=== PATIENT | female | born 1930 | race Caucasian/White ===

== ENCOUNTER 2016-09-18 09:57 | Emergency (ER) | payer MEDICARE ==
[~2016-09-18] VITALS: Ht 180.3 cm; Wt 59.1 kg
[~2016-09-18 09:57] MED LIST: ASPI81TA3 PO; DIPH25CA6 PO; DORZ10DR20 BOTH_EYES; HYDR28OI2 TP; OMEG-38 PO; SERT50TA9 PO; SIMV80TA4 PO; SPIR50TA2 PO; TAFL1DRO OP; TRIA1CAP PO
[2016-09-18 10:00] VITALS: BP 143/78; PULSE 89; RESP 20; O2SAT 97
--- NOTE | 2016-09-18 10:01 | ED.REPORT ---
HPI-Trauma Multiple Date of Service Sep 18, 2016 ED Provider: Dashawn Araujo MD The patient is an 86 year old female with history of hypertension and colon cancer on chemotherapy, who presents to the emergency department by EMS after she had a ground level fall prior to arrival. The patient was getting out of her shower when she slipped and fell. She hit both sides of the back of her head and her right elbow. She was able to get to the phone and call the nurse at the assisted living facility that she resides at. She did not lose consciousness. She does complain of a headache. She denies dizziness, lightheadedness, focal weakness, numbness, chest pain, shortness of breath or vomiting. She is not on any blood thinners. Nursing Notes Stated Complaint: GLF Nursing Notes Reviewed: Yes Allergies: Coded Allergies: Penicillins (Verified Allergy, Unknown, 12/03/15) adhesive tape (Verified Allergy, Unknown, 12/03/15) carboplatin (Verified Allergy, Unknown, 12/03/15) cephalexin (Verified Allergy, Unknown, 12/03/15) ciprofloxacin (Verified Allergy, Unknown, 12/03/15) diclofenac (Verified Allergy, Unknown, 12/03/15) gabapentin (Verified Allergy, Unknown, 12/03/15) Uncoded Allergies: FRAGANCE (Allergy, Unknown, 11/21/14) VICKS VAPORUB INGREDIENTS (Allergy, Unknown, 11/21/14) Scheduled Aspirin Chew (Aspirin Chew) 81 Mg Tablet 162 MG PO DAILY Dorzolamide HCl/Timolol Maleat (Dorzolamide-Timolol Eye Drops) 10 Ml Drops 1 GTT OP BID [place]-3/Dha/Epa/Fish Oil (Fish Oil 1,000 mg Softgel) 1 Each Capsule 1 EACH PO DAILY Sertraline HCl (Sertraline) 50 Mg Tablet 50 MG PO DAILY Simvastatin (Simvastatin) 80 Mg Tablet 40 MG PO HS Spironolactone (Spironolactone) 50 Mg Tablet 50 MG PO DAILY Tafluprost/Pf (Zioptan 0.0015% Eye Drops) 1 Each Droperette 1 GTT OP HS Triamterene/HCTZ 37.5-25 mg (Dyazide 37.5-25 mg) 1 Each Capsule 1 EACH PO DAILY Scheduled PRN Hydrocortisone Acetate (Hydrocortisone) 28 Gm Oint...g. TP prn PRN PRN For Itching diphenhydrAMINE HCl (Benadryl) 25 Mg Capsule 25 MG PO Q4 PRN PRN For Itching General Time Seen by Provider: 10:18 Chief Complaint Extremity pain/injury, Head pain/injury, Other (fall) Hx Obtained From: Patient, EMS Arrived By: Ambulance Onset Occurred: Just prior to arrival Symptom Duration: Since onset Progression Since Onset: Constant Caused by: Fall while (getting out of shower) Context: Occurred at: Home Location: : Scalp Quality: Painful Severity: Current: Mild Severity: Maximum: Moderate Recent Healthcare: No recent doctor visit, No recent hospitalization Similar Sx Previous: No Past Medical History Past Medical History 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, 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 Reports: Cancer, Hypertension Past Surgical History Knee surgery Reports: Cataract surgery, Hysterectomy Reports: Back/neck surgery Family History Noncontributory Smoking History Never Smoker Social History Drug Use: Denies drug use Other Social History: Lives in [facility], Local resident 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 Physical Exam Initial Vital Signs Vital Signs (First) Date Time Temp Pulse Resp B/P Pulse Ox O2 Delivery O2 Flow Rate FiO2 09/18/16 10:00 36.7 89 20 143/78 97 Room Air Initial VS: Reviewed ENT: Mucous membranes moist, Conjunctiva normal, No scleral icterus Extremities: Vascular intact, Neuro intact Skin: Warm, Dry, No cyanosis Psychiatric: Mood/affect normal, Behavior normal, Normal thought content General/Constitutional: Awake, Alert, Cooperative Head / Eyes: Normocephalic, PERRL, EOMI She has an occipital hematoma and there appears to be a laceration with some dried blood about the right side of her scalp. Neck: Atraumatic, Supple, Full range of motion, No swelling, Non-tender, No midline vertebral tend, No masses, No crepitus, No JVD, No tracheal deviation Respiratory / Chest: Atraumatic, Breath sounds NL, Breath sounds = bilat, No respiratory distress, No rales, No rhonchi, No wheezing, No stridor, No chest tenderness, No chest wall deformity, No crepitus Cardiovascular: Heart rate NL, Regular rhythm, Heart sounds NL, No gallop, No murmurs, No rubs, Cap refill not delayed, Peripheral circulation NL Abdomen: Atraumatic, Soft, Non-tender, No guarding, No rebound, BS normoactive , No distention Back: Atraumatic, Inspection NL, Non-tender, No midline vertebral tend Neurologic: Oriented X3, Speech NL, No motor deficits, No sensory deficits, CN II - XII intact, Cerebellar NL, Memory NL Upper Extremity / MS: Neurologic intact, Vascular intact LUE is atraumatic with good radial pulses. RUE with a superficial abrasion overlying right elbow and a well healed scar over right shoulder. Full active and passive range of motion of her RUE. There is a tiny superficial abrasion over the DIP joint of her right second finger. Lower Extremity / Pelvis / MS: Atraumatic, Inspection NL, Full range of motion , No swelling, Non-tender, No deformity, Neurologic intact, Vascular intact, Pelvis stable, Pelvis non-tender RLE and LLE are both atraumatic with full active and passive range of motion. Good perfusion to feet. Interpretation & Diagnostics Lab Results Interpretation Result Diagram: 09/18/16 1242 09/18/16 1242 Test 09/18/16 12:42 White Blood Count 9.8th/mm3 (3.8-10.1) Red Blood Count 3.51mil/mm3 (3.90-5.20) Hemoglobin 11.0g/dL (12.0-15.6) Hematocrit 34.9% (35.0-46.0) Mean Corpuscular Volume 99.4fL (81-100) Mean Corpuscular Hemoglobin 31.3pg (27.0-35.0) Mean Corpuscular Hemoglobin Concent 31.5% (32.0-37.0) Red Cell Distribution Width 15.2% (12.3-15.4) Platelet Count 188bil/L (150-400) Neutrophils (%) (Auto) 82.6% (40-74) Lymphocytes (%) (Auto) 5.9% (14-46) Monocytes (%) (Auto) 9.8% (4-12) Eosinophils (%) (Auto) 1.2% (0-5) Basophils (%) (Auto) 0.2% (0-3) Prothrombin Time 11.7sec (8.1-12.5) Prothromb Time International Ratio 1.09ratio Sodium Level 136mEq/L (134-144) Potassium Level 3.7mEq/L (3.5-5.2) Chloride Level 97mEq/L (97-108) Carbon Dioxide Level 28mmol/L (18-29) Blood Urea Nitrogen 18mg/dL (8-27) Creatinine 0.62mg/dL (0.57-1.00) Estimat Glomerular Filtration Rate 131mL/min (>59) Glucose Level 96mg/dL (60-99) Calcium Level 9.3mg/dL (8.5-10.1) Total Bilirubin 0.9mg/dL (0.0-1.2) Aspartate Amino Transf (AST/SGOT) 25U/L (0-50) Alanine Aminotransferase (ALT/SGPT) 17U/L (0-32) Alkaline Phosphatase 70U/L (25-165) Total Protein 6.5g/dL (6.4-8.4) Albumin 3.7g/dL (3.4-5.0) X-Ray Interpretation X-Ray Ordered: Elbow right Interpretation / Wet Read by: Wet read ED physician Interpretation: Normal exam, No fracture/dislocation CT Head Interpretation IMPRESSION: 1. There is acute subdural hematoma along the right side of the falx and tentorium measuring up to 7 mm. There is trace right frontotemporoparietal subdural hematoma. No significant mass effect or midline shift. 2. Suspect small subarachnoid bleed in the right temporal lobe. 3. Cerebral volume loss and chronic microvascular ischemic changes. 4. Left parieto-occipital scalp laceration and hematoma. Dictated by: Mendel Batista M.D. on 09/18/2016 Study: Head CT no contrast Interpretation / Wet Read by: Interpret - Radiologist, Discussed w radiologist CT C-Spine Interpretation IMPRESSION: 1. No fractures in cervical spine. 2. Degenerative disease, uncovertebral hypertrophy and facet arthropathy in cervical spine. 3. Postsurgical changes related to posterior decompression at C4-C6. 4. Subpleural nodular densities in the right apex are most likely inflammatory in etiology. Dictated by: Mendel Batista M.D. on 09/18/2016 at 12:53. Study type: CT no contrast Interpretation / Wet Read by: Interpret - Radiologist, Discussed w radiologist Procedures Laceration Management Time: 12:43 Procedure Performed by: ED physician Consent / Setup / Site Prep: Consent from patient, Time-out performed, Hand hygiene observed Location of Wound: right occipital region, arcuate shaped, no involvement of the galea Wound Length: 8 cm Digital Block: No Wound Preparation: Normal saline Debridement: None Irrigation: Copious Foreign Body Explore / Removal: Explored for foreign body Undermining / Margins: Flaps aligned Repair Skin: Juarez # Sutures - Skin: 6 Closure Layers: 1 Post-Procedure / Complications: No complications, Condition improved, Tolerated procedure well, Patient stable Re-Eval/Medical Decision Med Decision/Clinical Course The patient is an 86 year old female with history of hypertension and colon cancer on chemotherapy, who presents to the emergency department by EMS after she had a ground level fall prior to arrival. She struck her occipital scalp and is complaining of bleeding from her scalp as well as right elbow pain. She is hemodynamically stable and afebrile. She is not on any blood thinners. Her GCS is 15. CT scan of the head was obtained as above and demonstrated acute SDH about the R falx and tentorium measuring about 7 mm. Thee was additional small R subarachnoid bleed present. Cervical spine CT demonstrated no acute fractures. Plain films of the right elbow demonstrated no acute fractures. Pt remained hemodynamically stable with no decline in mental status. She was discussed with [facility] Dr. James who accepted the patient for transfer. EMTALA paperwork was completed the patient was transferred to [facility] by helicopter in stable condition. Scalp laceration was copiously irrigated and closed as documented above using juarez. There was no foreign body present. Patient was reportedly up-to-date on tetanus status. Source of Hx: Old records, EMS Re-Evaluation/Progress #1: Time of Eval: 12:17 Re-Evaluation/Progress Note: Rechecked the patient. Discussed results, diagnosis, and plan for transfer to [facility]. She understands and agrees with plan. All questions were addressed. Re-Evaluation/Progress #2: Time of Eval: 13:26 Re-Evaluation/Progress Note: [facility] is here for the patient. Consultation #1: Call Returned at: 12:15 Note: Paged [facility] transfer center Consultation #2: Call Returned at: 12:35 Note: Spoke with Dr. James who accepts the patient for transfer. Counseled Regarding: Diagnosis, Lab results, Need for transfer Discharge & Departure Impression: Primary Impression: Fall Encounter type: initial encounter Qualified Code: W19.XXXA - Unspecified fall, initial encounter Additional Impressions: Subdural hematoma Scalp laceration Encounter type: initial encounter Qualified Code: S01.01XA - Laceration without foreign body of scalp, initial encounter Subarachnoid hemorrhage History of antineoplastic chemotherapy Disposition: Transfer, Acute Care Facility Receiving Hospital: [facility] Transfer Accepted: Yes Transfer Accepted at: 12:35 Transfer Reason: Higher level of care, Trauma Spoke with: Attending physician (Dr. James) Patient Status: Stable, Stable for transfer Patient Informed: Yes Discharge Condition All VS Reviewed: Yes Condition: Stable Referrals: WILLIE ASHTON MD (PCP) Crit Care Except Billable Proc Time Spent: 135-164 minutes Services Performed: Patient management by me, Time spent at bedside, Reviewing test results, Reviewing imaging, Discussing patient care, Documentation in record Critical Care Notes: Arranging transport, discussing findings with radiology, discussing findings with accepting physician at [facility], discussions with transfer center, exclusive of separately billable procedures. Scribe Attestation Portions of this note were transcribed by Mary Alice Horvath. I, Dr. Araujo personally performed the history, physical exam and medical decision-making; I reviewed and confirmed the accuracy of the information in the transcribed note. Signed by: Megan Callaway, 09/18/2016 and 1400. copies to: WILLIE ASHTON MD, Beck O MD Sep 18, 2016 10:01 Mary Alice Horvath Sep 18, 2016 10:06
[2016-09-18] MEDS ORDERED: HYDROcodone-APAP 7.5-325 mg Tablet PO ONE (10:35)
[2016-09-18 12:10] VITALS: BP 121/67; PULSE 78; O2SAT 98
[2016-09-18 12:47] LABS: BASOPHILS % (AUTO) 0.2 % (0-3); EOSINOPHILS % (AUTO) 1.2 % (0-5); MONOCYTES % (AUTO) 9.8 % (4-12); Mean Corpuscular Hemoglobin 31.3 pg (27.0-35.0); Mean Corpuscular Volume 99.4 fL (81-100); NEUTROPHILS % (AUTO) 82.6 % (40-74); Platelet Count 188 bil/L (150-400)
[2016-09-18 12:58] VITALS: BP 158/76; PULSE 107; RESP 19; O2SAT 98
[2016-09-18 13:03] LABS: INR 1.09 ratio
--- NOTE | 2016-09-18 15:14 | DRSVH ---
PROCEDURE: CT BRAIN WITHOUT CONTRAST ([id number]) INDICATIONS: trauma TECHNIQUE: Noncontrast 4.5 mm thick angled axial sections acquired from the foramen magnum to the vertex, with c oronal reformats. COMPARISON: [facility], CT, CT CERVICAL SPINE WO [facility], 09/18/2016, 11:56. [facility], CT, CT BRAIN WO CON, 12/03/2015, 7:52. FINDINGS: Image quality: Excellent. CSF spaces: There is acute hematoma along the falx and tentorium on the right measuring up to 7 mm t hickness. There is also trace right frontotemporoparietal subdural hematoma. There is minimal mass e ffect with no midline shift. The ventricles are symmetric in size and shape. Brain: Hyperdensity along the cerebral sulci in the right temporal lobe is suspicious for small suba rachnoid bleed. Basal cisterns are patent. No intracranial bleeds or masses. There is cerebral volu me loss for age, with resultant ventricular and sulcal prominence. There are periventricular and sumit p white matter chronic small vessel ischemic changes. There is intracranial internal carotid artery atherosclerosis. Skull and face: Calvarium and visualized facial bones appear intact, without suspicious lesions. Th ere is a left parieto-occipital scalp laceration and subscalp hematoma. Sinuses: Visualized sinuses and mastoids are clear. IMPRESSION: 1. There is acute subdural hematoma along the right side of the falx and tentorium measuring up to 7 mm. There is trace right frontotemporoparietal subdural hematoma. No significant mass effect or midli ne shift. 2. Suspect small subarachnoid bleed in the right temporal lobe. 3. Cerebral volume loss and chronic microvascular ischemic changes. 4. Left parieto-occipital scalp laceration and hematoma. The result was discussed with Dr. Araujo on 09/18/2016 at 1215 hours. Dictated by: Mendel Batista M.D. on 09/18/2016 at 12:13 Approved by: Mendel Batista M.D. on 09/18/2016 at 12:29
--- NOTE | 2016-09-18 15:15 | DRSVH ---
PROCEDURE: CT CERVICAL SPINE WITHOUT CONTRAST ([id number]) INDICATIONS: 86-year-old woman fell. TECHNIQUE: Noncontrast 3 mm thick sections acquired from the skull base to the T4 level. Sagittal and coronal r eformats were then constructed. For radiation dose reduction, the following was used: automated exp osure control, adjustment of mA and/or kV according to patient size. COMPARISON: [facility], CT, CT BRAIN WO CON, 09/18/2016, 11:56. [facility], CT, CT CERVICAL SPINE WO CON, 12/03/2015, 7:52. FINDINGS: Image quality: Excellent. Bones: No fractures or dislocations. Post surgical changes are noted related to posterior decompres surya C4-C6. There is loss of normal cervical lordosis. There is degenerative disc disease in cervical spine, severe at C5-C6 and C6-C7. There is bilateral uncovertebral hypertrophy scattered in cervical spine. There is bilateral facet arthropathy, most pronounced at C3-C4 bilaterally and C6-C7 on the l eft. Soft tissues: Prevertebral soft tissues are normal in thickness. No paravertebral hematomas. No ap ical pneumothoraces. Subpleural nodular densities in the right apex are most likely inflammatory in etiology. IMPRESSION: 1. No fractures in cervical spine. 2. Degenerative disease, uncovertebral hypertrophy and facet arthropathy in cervical spine. 3. Postsurgical changes related to posterior decompression at C4-C6. 4. Subpleural nodular nodular densities in the right apex are most likely inflammatory in etiology. The preliminary result was discussed with Dr. Aung Maria on 09/18/2016 at 1220 hours. Dictated by: Mendel Batista M.D. on 09/18/2016 at 12:53 Approved by: Mendel Batista M.D. on 09/18/2016 at 13:01
--- NOTE | 2016-09-18 15:15 | DRSVH ---
PROCEDURE: X-RAY RIGHT ELBOW, TWO VIEWS ([id number]) INDICATIONS: trauma TECHNIQUE: 3 views of the elbow were acquired. COMPARISON: None. FINDINGS: Bones: No fractures or dislocations. No suspicious bony lesions. Soft tissues: No elbow joint effusion. No suspicious soft tissue calcifications. IMPRESSION: No fracture or dislocation. Dictated by: Mendel Batista M.D. on 09/18/2016 at 13:38 Approved by: Mendel Batista M.D. on 09/18/2016 at 13:39
[2016-10-17] MEDS ORDERED: ATOR20TA PO (09:48)
[2016-10-17] MEDS ORDERED: MAGN400O4 PO (09:48)
[2016-10-17] MEDS ORDERED: OXYC-537 PO (09:48)
[2016-10-17] MEDS ORDERED: LOV40 SUBQ (09:48)
[2016-10-17] MEDS ORDERED: POLY17PO6 PO (09:48)
[2016-10-17] MEDS ORDERED: POLY1DRO BOTH_EYES (09:48)
[2016-10-17] MEDS ORDERED: DOCU-41 PO (09:48)
[2016-10-17] MEDS ORDERED: LATA2.5D6 OP (09:48)
[2016-10-17] MEDS ORDERED: ACET325T51 PO (09:48)
[2016-10-17] MEDS ORDERED: PREG75CA PO (09:48)
== END 2016-09-18 13:42 | disposition short-term general hospital (02) ==
LOC: EDBD 09:57 → SED 09:57
DX: S06.6X0A Traumatic subarachnoid hemorrhage without loss of consciousness, initial encounter (principal); S06.5X0A Traumatic subdural hemorrhage without loss of consciousness, initial encounter; S01.01XA Laceration without foreign body of scalp, initial encounter; W18.2XXA Fall in (into) shower or empty bathtub, initial encounter; Y93.E1 Activity, personal bathing and showering; Y99.8 Other external cause status; Y92.121 Bathroom in nursing home as the place of occurrence of the external cause; I10 Essential (primary) hypertension; Z90.710 Acquired absence of both cervix and uterus; Z85.038 Personal history of other malignant neoplasm of large intestine; Z51.11 Encounter for antineoplastic chemotherapy; Z85.43 Personal history of malignant neoplasm of ovary; Z79.82 Long term (current) use of aspirin; Z88.0 Allergy status to penicillin; Z88.1 Allergy status to other antibiotic agents; Z88.8 Allergy status to other drugs, medicaments and biological substances

== ENCOUNTER 2016-11-15 09:11 | Observation (INO) | payer MEDICARE ==
[~2016-11-15] VITALS: Ht 180.3 cm; Wt 62.6 kg
[2016-11-15 09:11] VITALS: BP 136/73; PULSE 79; RESP 16; O2SAT 95
[~2016-11-15 09:11] MED LIST changes: +ACET325T51 PO; -ASPI81TA3 PO; +ATOR20TA PO; -DIPH25CA6 PO; +DOCU-41 PO; -HYDR28OI2 TP; +LATA2.5D6 OP; +LOV40 SUBQ; +MAGN400O4 PO; -OMEG-38 PO; +OXYC-537 PO; +POLY17PO6 PO; +POLY1DRO BOTH_EYES; +PREG75CA PO; -SIMV80TA4 PO; -TAFL1DRO OP; -TRIA1CAP PO
[2016-11-15] MEDS ORDERED: oxyCODONE-Acetamin 5-325 mg Tablet PO ONE (09:20)
--- NOTE | 2016-11-15 09:31 | ED.REPORT ---
HPI-Trauma Minor / Fall Date of Service Nov 15, 2016 ED Provider: Júnior Prescott MD An 86 year old female with a history of primary peritoneal carcinoma/ovarian cancer, and HTN presents to the ED via EMS complaining of left knee pain after GLF that occurred in the handkerchief sample clerk, [phone] today. She is not sure why she fell, not being sure if she lost balance or if she was not paying attention. Associated symptoms include left leg swelling that is not normal, and back pain. She also has left ankle pain. She denies any abdominal pain. She denies hitting her head or losing consciousness. She denies currently being on any blood thinners. Nursing Notes Stated Complaint: LEFT KNEE PAIN Chief Complaint: Multiple Trauma/Fall Nursing Notes Reviewed: Yes Allergies: Coded Allergies: Penicillins (Verified Allergy, Unknown, 12/03/15) adhesive tape (Verified Allergy, Unknown, 12/03/15) carboplatin (Verified Allergy, Unknown, 12/03/15) cephalexin (Verified Allergy, Unknown, 12/03/15) ciprofloxacin (Verified Allergy, Unknown, 12/03/15) diclofenac (Verified Allergy, Unknown, 12/03/15) gabapentin (Verified Allergy, Unknown, 12/03/15) Uncoded Allergies: FRAGANCE (Allergy, Unknown, 11/21/14) VICKS VAPORUB INGREDIENTS (Allergy, Unknown, 11/21/14) Scheduled Atorvastatin (Lipitor) 20 Mg Tablet 20 MG PO DAILY Dorzolamide HCl/Timolol Maleat (Dorzolamide-Timolol Eye Drops) 10 Ml Drops 1 GTT OP BID Enoxaparin (Lovenox) 40 Mg/0.4 Ml Syringe 40 MG SUBQ HS Latanoprost (Latanoprost) 2.5 Ml Drops 1 GTT OP LEFT EYE HS DAILY Oxycodone HCl (Oxaydo) 5 Mg Tablet.orl 2.5-5 MG PO Q3HRS PRN Polyethylene Glycol 3350 (Miralax) 17 Gm Powd.pack 17 GM PO DAILY PRN Polyvinyl Alcohol/Povidone/Pf (Refresh Classic Eye Drops) 1 Each Droperette 1 EACH OP EACH EYE PRN Pregabalin (Lyrica) 75 Mg Capsule 75 MG PO BID Sertraline HCl (Sertraline) 50 Mg Tablet 50 MG PO DAILY Spironolactone (Spironolactone) 50 Mg Tablet 25 MG PO DAILY Scheduled PRN Acetaminophen (Acetaminophen) 325 Mg Tablet 650 MG PO Q4H PRN PRN For Pain Docusate Sodium (Colace) 100 Mg Capsule 200 MG PO BID PRN PRN For Constipation Magnesium Hydroxide (Milk of Magnesia) 400 Mg/5 Ml Oral.susp 30 ML PO PRN PRN PRN For Constipation General Time Seen by MD: 09:30 Transferred From: halfway Chief Complaint Fall Hx Obtained From: Patient, EMS Arrived By: Ambulance Onset Occurred: 1 - 4 hours ago Symptom Duration: Since onset Location: Knee left Severity: Current: Moderate Severity: Maximum: Moderate Recent Healthcare: Recent doctor visit (oncology appointment on 10/18/2016) Similar Sx Previous: No Past Medical History Past Medical History 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 Reports: Cancer, Hypertension Past Surgical History Knee surgery cervical spine laminectomy Reports: Cataract surgery, Hysterectomy Reports: Back/neck surgery Family History Noncontributory Smoking History Never Smoker Social History Patient lives at [facility]. 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 Musculoskeletal: Reports: Back pain, Extremity pain (left knee, left ankle), Extremity swelling (left leg swelling) Neurologic: Denies: Syncope Complete sys rev & neg: except as marked. GI: Denies: Abdominal pain Physical Exam Initial Vital Signs Vital Signs (First) Date Time Temp Pulse Resp B/P Pulse Ox O2 Delivery O2 Flow Rate FiO2 11/15/16 09:11 36.7 79 16 136/73 95 Room Air Initial VS: Reviewed General/Constitutional: Awake, Alert Neck: Atraumatic, Full range of motion Head / Eyes: Atraumatic, Normocephalic, PERRL, EOMI ENT: Atraumatic, Mucous membranes moist Respiratory / Chest: Atraumatic, Breath sounds NL, Breath sounds = bilat, No respiratory distress, No rales, No rhonchi, No wheezing Cardiovascular: Heart rate NL, Regular rhythm, Heart sounds NL, No gallop, No murmurs, No rubs Lower Ext Edema: Positive: Bilateral 2+ Abdomen: No guarding, No rebound Left Thigh: Positive: Swelling present... (Very swollen left knee. Minimal movement is painful.) Skin: Color NL, Warm, Dry Neurologic: Oriented X3, Speech NL Interpretation & Diagnostics Lab Results Interpretation Result Diagram: 11/15/16 1012 11/15/16 1012 Test 11/15/16 10:12 11/15/16 10:20 White Blood Count 5.2th/mm3 (3.8-10.1) Red Blood Count 3.71mil/mm3 (3.90-5.20) Hemoglobin 10.7g/dL (12.0-15.6) Hematocrit 35.3% (35.0-46.0) Mean Corpuscular Volume 95.1fL (81-100) Mean Corpuscular Hemoglobin 28.8pg (27.0-35.0) Mean Corpuscular Hemoglobin Concent 30.3% (32.0-37.0) Red Cell Distribution Width 15.2% (12.3-15.4) Platelet Count 188bil/L (150-400) Neutrophils (%) (Auto) 73.4% (40-74) Lymphocytes (%) (Auto) 8.3% (14-46) Monocytes (%) (Auto) 16.2% (4-12) Eosinophils (%) (Auto) 1.5% (0-5) Basophils (%) (Auto) 0.4% (0-3) Sodium Level 139mEq/L (134-144) Potassium Level 3.7mEq/L (3.5-5.2) Chloride Level 102mEq/L (97-108) Carbon Dioxide Level 22mmol/L (18-29) Blood Urea Nitrogen 17mg/dL (8-27) Creatinine 0.59mg/dL (0.57-1.00) Estimat Glomerular Filtration Rate 139mL/min (>59) Glucose Level 96mg/dL (60-99) Calcium Level 9.4mg/dL (8.5-10.1) Total Bilirubin 1.4mg/dL (0.0-1.2) Aspartate Amino Transf (AST/SGOT) 13U/L (0-50) Alanine Aminotransferase (ALT/SGPT) 6U/L (0-32) Alkaline Phosphatase 68U/L (25-165) Total Protein 6.4g/dL (6.4-8.4) Albumin 3.5g/dL (3.4-5.0) Hold Ortega Top Tube Received (Received) Urine Color Dark yellow (YELLOW) Urine Appearance Clear (CLEAR,HAZY) Urine pH 5.0 (5.0-8.0) Urine Specific [place] 1.025 (1.003-1.035) Urine Protein Tracemg/dL (NEG,TRACE) Urine Glucose (UA) Negativemg/dL (NEGATIVE) Urine Ketones 15mg/dL (NEGATIVE) Urine Occult Blood Negative (NEGATIVE) Urine Nitrite Negative (NEGATIVE) Urine Bilirubin Negative (NEGATIVE) Urine Urobilinogen Normalmg/dL (NORMAL) Urine Leukocyte Esterase Negative (NEGATIVE) Urine RBC 0-2/hpf (0-2) Urine WBC 0-5/hpf (0-5) Urine Epithelial Cells Occasional/hpf (NONE-MOD) Urine Crystals None seen (NONE SEEN) Urine Bacteria None/hpf (NONE-FEW) Urine Hyaline Casts Occasional/lpf (NONE) Urine Granular Casts Occasional (NONE SEEN) Urine Waxy Casts None seen (NONE SEEN) Urine Red Blood Cell Casts None seen (NONE SEEN) Urine White Blood Cell Casts None seen (NONE SEEN) Urine Mucus Present (None Seen) Urine Trichomonas None seen (NONE SEEN) Urine Yeast None (NONE SEEN) Urinalysis Comment None Urine Culture Reflexed Not indicated Lab Results Interpretation: PROCEDURE: CT KNEE LEFT W/O CONTRAST ([id number]) IMPRESSION: 1. No fracture. No acute osseous lesion. If symptoms and/or clinical suspicion for pathology persists, further assessment with repeat radiographs or advanced imaging (e.g. CT, MRI or bone scan) may be helpful for further assessment. 2. Severe tricompartmental osteoarthritis. 3. 1.8 x 0.7 x 0.7 cm ossified intra-articular loose body. Dictated by: Deepa Michael MD, PhD on 11/15/2016 at 14:05 Approved by: Deepa Michael MD, PhD on 11/15/2016 at 14:10 ECG Interpretation ECG Interpretation: Rate is 69. Sinus rhythm. Time: 10:15 Interpreted by: ED physician X-Ray Interpretation Xray Interpretation: PROCEDURE: X-RAY LEFT ANKLE, MINIMUM THREE VIEWS ([id number]) IMPRESSION: 1. Osteopenia of the left ankle without acute fracture. 2. Extensive subcutaneous edema of the left lower leg. Dictated by: Krish López M.D. on 11/15/2016 at 10:40 Approved by: Krish López M.D. on 11/15/2016 at 10:41 X-Ray Ordered: Ankle left Interpretation / Wet Read by: Interpret - Radiologist Xray Interpretation: PROCEDURE: X-RAY LEFT KNEE, THREE VIEWS ([id number]) IMPRESSION: 1. Severe degenerative changes and osteopenia of the left knee without a displaced fracture evident. 2. Small to moderate knee joint effusion. Dictated by: Krish López M.D. on 11/15/2016 at 10:42 Approved by: Krish López M.D. on 11/15/2016 at 10:43 X-Ray Ordered: Knee left Interpretation / Wet Read by: Interpret - Radiologist Xray Interpretation: PROCEDURE: X-RAY SACRUM AND COCCYX, MINIMUM THREE VIEWS ([id number]) IMPRESSION: 1. No displaced fracture or dislocation. If clinical concern persists, recommend further evaluation with CT. Dictated by: Darren Odonnell M.D. on 11/15/2016 at 11:27 Approved by: Darren Odonnell M.D. on 11/15/2016 at 11:31 Interpretation / Wet Read by: Interpret - Radiologist Re-Eval/Medical Decision Med Decision/Clinical Course Patient is unable to ambulate, will get PT eval to see if she is a good SNF candidate. Source of Hx: Old records, EMS Re-Evaluation/Progress : Time of Eval: 14:17 Patient Status: Condition improved Re-Evaluation/Progress Note: Rechecked patient and explaiend normal test results. Patient is in no pain sitting, but does report numbness in her feet. Explained that patient needs social work help. Counseled Regarding: Diagnosis, Lab results, Need for follow-up, When/why to return to ED Discharge & Departure Shift Change Sign-Out Patient Care Transferred: Yes Discussed Complaint(s): Yes Impression: Primary Impression: Fall Additional Impression: Knee contusion Additional Instructions: Your knee and ankle look fine. You do not have any fractures. Your blood work looks great and there is no evidence of infection. Treat the pain for a few days and see if it gets better. If by this time this week, it still hurts and you cannot put any weight on it, return to the emergency room. Referrals: WILLIE ASHTON MD (PCP) Care Transferred to: Dr. Araujo Care Transferred at: 15:00 Megan Attestation Portions of this note were transcribed by Iban Mcneal. I, Dr. Prescott personally performed the history, physical exam and medical decision-making; I reviewed and confirmed the accuracy of the information in the transcribed note. Signed by: Megan Griggs, 11/15/2016, 1449. copies to: WILLIE ASHTON MD, Kirk H MD Nov 15, 2016 09:31 Iban Mcneal Nov 15, 2016 09:34
[2016-11-15 10:17] LABS: BASOPHILS % (AUTO) 0.4 % (0-3); EOSINOPHILS % (AUTO) 1.5 % (0-5); MONOCYTES % (AUTO) 16.2 % (4-12); Mean Corpuscular Hemoglobin 28.8 pg (27.0-35.0); Mean Corpuscular Volume 95.1 fL (81-100); NEUTROPHILS % (AUTO) 73.4 % (40-74); Platelet Count 188 bil/L (150-400)
[2016-11-15 11:16] LABS: APPEARANCE,URINE CLEAR (CLEAR,HAZY); COLOR,URINE DARK YELLOW (YELLOW)
[2016-11-15 11:17] LABS: OCCULT BLOOD,URINE NEGATIVE (NEGATIVE); UROBILINOGEN,URINE NORMAL (NORMAL)
--- NOTE | 2016-11-15 11:33 | DRSVH ---
PROCEDURE: X-RAY SACRUM AND COCCYX, MINIMUM THREE VIEWS ([id number]) INDICATIONS: trauma TECHNIQUE: 3 views of the sacrum and coccyx acquired. COMPARISON: None. FINDINGS: Bones: No displaced fractures or dislocations. There is degenerative disc disease and facet arthrop athy in the visualized lower lumbar spine. No suspicious bony lesions. Soft tissues: Visualized bowel gas pattern is normal. IMPRESSION: 1. No displaced fracture or dislocation. If clinical concern persists, recommend further evaluation with CT. Dictated by: Darren Odonnell M.D. on 11/15/2016 at 11:27 Approved by: Darren Odonnell M.D. on 11/15/2016 at 11:31
--- NOTE | 2016-11-15 11:43 | DRSVH ---
PROCEDURE: X-RAY LEFT ANKLE, MINIMUM THREE VIEWS ([id number]) INDICATIONS: trauma TECHNIQUE: 3 views of the ankle were acquired. COMPARISON: None. FINDINGS: Bones: The bone mineralization is diffusely decreased. There are no displaced fractures or dislocati ons evident. No suspicious osseous lesions are appreciated. The ankle mortise is well-maintained. There may be an old injury at the tip of the lateral malleolus given a small rounded ossific/calcific density present at that location. Soft tissues: No significant ankle effusion is present. Diffuse subcutaneous edema is evident overly ing the left lower leg, which is more pronounced anteriorly with corresponding skin thickening. Scat tered vascular calcifications are noted. IMPRESSION: 1. Osteopenia of the left ankle without acute fracture. 2. Extensive subcutaneous edema of the left lower leg. Dictated by: Krish López M.D. on 11/15/2016 at 10:40 Approved by: Krish López M.D. on 11/15/2016 at 10:41
--- NOTE | 2016-11-15 11:45 | DRSVH ---
PROCEDURE: X-RAY LEFT KNEE, THREE VIEWS ([id number]) INDICATIONS: trauma TECHNIQUE: 4 views of the knee were acquired. COMPARISON: None. FINDINGS: Bones: The bone mineralization is diffusely decreased. Additionally, there are severe tricompartment al degenerative changes of the left knee with prominent joint space narrowing, subchondral sclerosis, prominent marginal osteophytes, and degenerative cystic changes. These findings could potentially o bscure very subtle fracture. However, no displaced fractures are present. There is no dislocation. No suspicious osseous lesions are evident. Soft tissues: There is a small to moderate knee joint effusion. Moderate edema about the knee is pre sent which may be slightly more prominent laterally. Subcutaneous edema of the lower leg is noted. IMPRESSION: 1. Severe degenerative changes and osteopenia of the left knee without a displaced fracture evident. 2. Small to moderate knee joint effusion. Dictated by: Krish López M.D. on 11/15/2016 at 10:42 Approved by: Krish López M.D. on 11/15/2016 at 10:43
[2016-11-15 12:07] VITALS: BP 136/73; PULSE 64; RESP 15; O2SAT 98
--- NOTE | 2016-11-15 14:11 | DRSVH ---
PROCEDURE: CT KNEE LEFT W/O CONTRAST ([id number]) INDICATIONS: trauma TECHNIQUE: Noncontrast 1-1.5 mm axial sections acquired from the mid-patella to the proximal tibia, with coronal and sagittal reformats. COMPARISON: [facility], CR, XR KNEE 3VW LT, 11/15/2016, 10:58. FINDINGS: Image quality: Excellent. Bones: No fracture or dislocation. Severe tricompartmental osteoarthritic degenerative changes are no mikal including joint space narrowing, subchondral sclerosis, subchondral cyst formation and large joi inal osteophytes. Soft tissues: Large knee joint effusion is noted. There is a 1.8 x 0.7 x 0.7 cm ossified loose body i n the posterior lateral joint space. Mild juxta-articular soft tissue swelling is noted. IMPRESSION: 1. No fracture. No acute osseous lesion. If symptoms and/or clinical suspicion for pathology persists , further assessment with repeat radiographs or advanced imaging (e.g. CT, MRI or bone scan) may be h elpful for further assessment. 2. Severe tricompartmental osteoarthritis. 3. 1.8 x 0.7 x 0.7 cm ossified intra-articular loose body. Dictated by: Deepa Michael MD, PhD on 11/15/2016 at 14:05 Approved by: Deepa Michael MD, PhD on 11/15/2016 at 14:10
--- NOTE | 2016-11-15 15:11 | NUR ---
Spoke with Feliciano at [facility] and he had patient in his facility from 09/29 - 11/01, patient originally came to [facility] from [facility]. Feliciano can accept patient back but will need to be first thing on 11/16/16 due to amount of admits today. Updated ED STRAND GALVANIZER and STRAND GALVANIZER Public Relations Player.
[2016-11-15] MEDS ORDERED: Alum-Mag Hydrox-Simeth 30 mL Suspension PO PRN ×2 (15:40→16:10)
[2016-11-15] MEDS ORDERED: Ondansetron 2 mg/mL 2 mL Inj IVPUSH PRN ×2 (15:40→16:10)
--- NOTE | 2016-11-15 15:51 | NUR ---
Evaluation completed. Please go to "Notes" then click on "Assessments and Notes" (bottom left corner of screen). Then select appropriate discipline tab on top of screen.
[2016-11-15] MEDS ORDERED: RIVA20TA PO (16:00)
[2016-11-15] MEDS ORDERED: SPIR25TA3 PO (16:00)
[2016-11-15 16:09] VITALS: BP 111/52; PULSE 66; O2SAT 98
[2016-11-15] MEDS ORDERED: Polyethylene Glycol (PEG) 17 Gm Powder PO PRN (16:10)
[2016-11-15] MEDS ORDERED: Magnesium Hydroxide 355 mL Oral Suspension PO PRN (17:55)
--- NOTE | 2016-11-15 17:55 | PCM.HPMED ---
Subjective Date of Service Nov 15, 2016 Primary Provider: Admitting Physician: Kaci Montgomery DO Primary Care Physician: Angela Gregorio MD Attending Physician: Kaci Montgomery DO Allergies Coded Allergies: Penicillins (Verified Allergy, Unknown, 11/15/16) adhesive tape (Verified Allergy, Unknown, 11/15/16) carboplatin (Verified Allergy, Unknown, 11/15/16) cephalexin (Verified Allergy, Unknown, 11/15/16) ciprofloxacin (Verified Allergy, Unknown, 11/15/16) diclofenac (Verified Allergy, Unknown, 11/15/16) gabapentin (Verified Allergy, Unknown, 11/15/16) Uncoded Allergies: FRAGANCE (Allergy, Unknown, 11/21/14) VICKS VAPORUB INGREDIENTS (Allergy, Unknown, 11/21/14) PMH Social History Hx Alcohol Use: No Hx Substance Use: No Smoking Status: Never Smoker Exam Vital Signs Vital Sign - Last Date Time Temp Pulse Resp B/P Pulse Ox O2 Delivery O2 Flow Rate FiO2 11/15/16 16:09 36.3 66 111/52 98 Room Air 11/15/16 12:07 15 Lab and Diagnostics Result Diagram: 11/15/16 1012 11/15/16 1012 Assessment & Plan HPI: Patient is an 86-year-old female who presented to the emergency room status post fall. The patient has been having recurrent falls and is currently no longer stable to continue living at her still living facility. The assisted living [facility] stated that they would take the patient back on the inpatient unit however the patient could not come back today. They are scheduling the patient to return to [facility] [place] tomorrow. The patient currently has no fractures and after interview with the patient it does seem that the patient has some dementia which is not noted in her history. Patient was a very difficult historian and was only able to answer questions pertaining to herself. Most of the patient's information came from chart review and the emergency physician who is familiar with this patient. Home medications: Atorvastatin 20 mg daily Dorzolamide/timolol 10 mill drops 1 drop each eye twice a day Plan to process 2.5 mL drops 1 drop in the left eye daily at bedtime Oxycodone 5 mg 2.5-5 mg by mouth every 3 hours when necessary MiraLAX daily when necessary Lyrica 75 mg by mouth twice a day Sertraline 50 mg by mouth daily Spironolactone 25 mg daily Xeralto 20 mg daily PMHx: Peritoneal carcinoma/ovarian cancer with high grade serous histology BRCA negative Hypertension Hyperlipidemia SHx: Knee surgery cervical spine laminectomy Reports: Cataract surgery, Hysterectomy Reports: Back/neck surgery FHx: Unable to obtain at this time secondary to patient's waxing and waning dementia and there is no family present SocHx: Tobacco history: Patient denies Alcohol use: Occasional Drug use: Patient denies ROS: A complete review of systems was performed or attempted to be performed. Please see HPI for pertinent positives, all other systems are negatives. Physical Exam: GEN: Patient was awake, alert, not responding appropriately to questions most likely secondary to dementia, patient is able to answer questions appropriately only if it is in that specific time she has difficulty answering questions in the past such as, how has she been, or if she has ever experienced symptoms such as irregular heartbeat etc. HEENT: Pupils equal round and reactive to light, extraocular eye muscles intact , Neck soft supple, trachea midline, nomocephalic/atraumatic CV: +S1/S2, irregular, no murmurs auscultated Respiratory: CTAB, no wheezes, rales, rhonchi GI: +bowel sounds x4, soft, compressible, nontender to palpation EXT: no clubbing, cyanosis, +1 pitting edema bilaterally Neuro: Cranial nerves II-XII grossly intact Psych: mood and affect were appropriate Assessment and Plan 86-year-old female presents status post ground level fall Ground level fall -Consult PT and OT -Negative for fracture -Placement needed Cataracts -Continue home medications Chronic back and neck pain -Continue home pain meds Hypertension -Continue home meds Hyperlipidemia -Continue home meds Questionable history of A. fib -Continue Xeralto -Patient is currently taking Xeralto and has an irregular heartbeat could possibly be secondary to chronic history of A. fib or could be secondary to a history of DVT. When looking throughout the patient's history during the chart review there was no signs of DVT and ultrasound seemed to pull this out however I could not find anything as to why the patient was taking Xeralto. At this time because the patient does have an irregular heartbeat and may be secondary to a history of A. fib which seems to be chronic and stable. DVT prophylaxis -SCDs Disposition: Patient currently has a history of multiple falls and is no longer safe to stay in assisted living. The patient does seem to be suffering from some signs of dementia which could be a meeting to the patient's falls. Patient has been accepted at [facility] however they are unable to accept this patient today but will be able to accept the patient tomorrow. Patient will most likely stay less than 2 midnights. Code Status: Unknown patient has dementia and no family was present Time spent greater than 45 minutes Kaci Montgomery DO Nov 15, 2016 17:28
--- NOTE | 2016-11-15 18:22 | NUR ---
Transfer from ER Report received from ER nurse. Denies pain or discomfort. [place] and bed alarm on. patient sleeping comfortably.
[2016-11-15] MEDS ORDERED: Artificial Tears 15 mL Ophthalmic Solution BOTH_EYES PRN (18:25)
[2016-11-15 18:44] VITALS: BP 112/79; PULSE 75; RESP 16; O2SAT 94
--- NOTE | 2016-11-15 19:57 | NUR ---
Case Management: Attempted to provide SORENSEN but patient sleeping soundly, will have to try again later. Jeanne Dove RN
[2016-11-15] MEDS: Timolol-Dorzolamide 10 mL Ophthalmic Solution BOTH_EYES SCH (21:12)
[2016-11-15 23:02] VITALS: BP 108/73; PULSE 71; RESP 17; O2SAT 95
[2016-11-16 04:13] VITALS: BP 115/62; PULSE 71; RESP 16; O2SAT 98
--- NOTE | 2016-11-16 05:15 | NUR ---
Pain Pt has pain upon weight bearing but usually only indication is a grimace. One time she did cry out in pain and needed extra help to get back to bedside despite being very close to it. Pt rated pain at 7/10 with weight and then it decreased to a 3/10 after a couple of minutes. Pain medication given upon pt request.
[2016-11-16] MEDS: Timolol-Dorzolamide 10 mL Ophthalmic Solution BOTH_EYES SCH (07:52)
[2016-11-16 08:03] VITALS: BP 130/73; PULSE 87; RESP 18; O2SAT 99
--- NOTE | 2016-11-16 08:29 | PCM.DIMED ---
Discharge Instructions Date of Service Nov 16, 2016 Dates of Hospitalization Nov 15, 2016 at 16:23 Discharge Diagnosis Discharge Diagnosis Ground-level fall Cataracts Chronic back pain Hypertension Hyperlipidemia Dementia Diet No restrictions Activity No restrictions (Gradually return to dialy activities) Call your provider Shortness of breath, Chest pain, Excessive diarrhea, Weakness (unilateral) Patient Instructions Follow-up with PCP in: 1 week (Please follow up with the PCP at [facility] or your own PCP) Kaci Montgomery DO Nov 16, 2016 08:29
[2016-11-16] MEDS ORDERED: Polyethylene Glycol (PEG) 17 Gm Powder PO SCH (08:30)
--- NOTE | 2016-11-16 08:52 | NUR ---
Spoke with Monica dental office coordinator at [facility] and they will transport patient at 11AM. Faxed orders and placed copy in chart. Updated MANUFACTURING EXECUTIVE and asked them to update RN
--- NOTE | 2016-11-16 09:40 | NUR ---
Social Work Note - Initial Assessment/Discharge: D/A: See Initial Assessment. The Pt is an 86 y/o female that was admitted under observation status for left knee pain, instability, meet ADLs. Readmission Risk Score 4. The Pt's PCP is MD Angela Gregorio and her primary insurance is Medicare with an AARP supplement. EMR reviewed. SW met with the Pt at bedside to explain role and discuss discharge planning. SW telephone number written on white board. The Pt lives at the [facility] (Assisted Living side). No Advanced Directive on file, paperwork given to Pt. She receives assistance with meals, medication management, transportation, cleaning, and some personal care. She uses a FWW and does not drive. The Pt [facility] a [facility] and a SNF history at [facility] and [facility]. Some of this initial information was provided by the Pt's daughter Maria Isabel Thomas [phone] due to the Pt's dementia. The Pt was seen in the ED on 11/15/18, see WIRE STRAIGHTENING MACHINE OPERATOR note. PT eval completed, recommending SNF. Pt agreeable to return to [facility] where she was last seen in early October. [facility] is willing to accept the Pt back, transportation set up for 11am. SW t/c to the Pt's daughter for update and clarification of initial assessment information. Daughter is also agreeable for her mother to return to [facility]. The Pt's daughter expressed some concern with future living arrangements for her mother, is currently in the exploration process of future predatory animal exterminator planning if needed. The Pt and daughter deny any other needs at this time, SW to follow if needs arise. P: The Pt to discharge back to [facility], transportation set up for 11am. The Pt and daughter deny any other needs at this time, SW to follow if needs arise. MIS Grajeda Contact Clerk Addendum: 11/16/16 at 0954 by GLENDA MARTINEZ SS Amended: Links added. Addendum: 11/16/16 at 1045 by GLENDA MARTINEZ SS PASRR completed and signed by MD left in transfer packet. Addendum: 11/16/16 at 1442 by GLENDA MARTINEZ SS SW received return call from nursing at [facility], nursing informed that the Pt has been discharge to [facility] earlier today. Nursing informed that the Pt was seen by PT in the ED, recommended SNF services. No other concerns noted.
--- NOTE | 2016-11-16 09:48 | NUR ---
Evaluation completed. Please go to "Notes" then click on "Assessments and Notes" (bottom left corner of screen). Then select appropriate discipline tab on top of screen.
--- NOTE | 2016-11-16 10:58 | NUR ---
Case Management: [employer] and Medicare D pamphlet were delivered and explained to pt. Original signed, dated and times copy placed in chart. Copy left at bedside. Leonor Jasso RN
--- NOTE | 2016-11-16 11:20 | PCM.DC.MED ---
Discharge Summary Date of Service Nov 16, 2016 Dates of Hospitalization Date of Hospital Admission Nov 15, 2016 at 16:23 Date of Discharge: Nov 16, 2016 Providers: Admitting Physician: Kaci Montgomery DO Primary Care Physician: Angela Gregorio MD Attending Physician: Kaci Montgomery DO Diagnosis at Time of Discharge Diagnosis at Time of Discharge Ground-level fall Cataracts Chronic back pain Hypertension Hyperlipidemia Dementia Procedures XRay, CTs & MRIs PROCEDURE: CT KNEE LEFT W/O CONTRAST ([id number]) IMPRESSION: 1. No fracture. No acute osseous lesion. If symptoms and/or clinical suspicion for pathology persists, further assessment with repeat radiographs or advanced imaging (e.g. CT, MRI or bone scan) may be helpful for further assessment. 2. Severe tricompartmental osteoarthritis. 3. 1.8 x 0.7 x 0.7 cm ossified intra-articular loose body. Dictated by: Deepa Michael MD, PhD on 11/15/2016 at 14:05 Approved by: Deepa Michael MD, PhD on 11/15/2016 at 14:10 PROCEDURE: X-RAY LEFT ANKLE, MINIMUM THREE VIEWS ([id number]) IMPRESSION: 1. Osteopenia of the left ankle without acute fracture. 2. Extensive subcutaneous edema of the left lower leg. Dictated by: Krish López M.D. on 11/15/2016 at 10:40 Approved by: Krish López M.D. on 11/15/2016 at 10:41 PROCEDURE: X-RAY LEFT KNEE, THREE VIEWS ([id number]) weight IMPRESSION: 1. Severe degenerative changes and osteopenia of the left knee without a displaced fracture evident. 2. Small to moderate knee joint effusion. Dictated by: Krish López M.D. on 11/15/2016 at 10:42 Approved by: Krish López M.D. on 11/15/2016 at 10:43 PROCEDURE: X-RAY SACRUM AND COCCYX, MINIMUM THREE VIEWS ([id number]) IMPRESSION: 1. No displaced fracture or dislocation. If clinical concern persists, recommend further evaluation with CT. Dictated by: Darren Odonnell M.D. on 11/15/2016 at 11:27 Approved by: Darren Odonnell M.D. on 11/15/2016 at 11:31 Brief History Patient is an 86-year-old female who presented to the emergency room status post fall. The patient has been having recurrent falls and is currently no longer stable to continue living at her still living facility. The assisted living [facility] stated that they would take the patient back on the inpatient unit however the patient could not come back today. They are scheduling the patient to return to [facility] tomorrow. The patient currently has no fractures and after interview with the patient it does seem that the patient has some dementia which is not noted in her history. Patient was a very difficult historian and was only able to answer questions pertaining to herself. Most of the patient's information came from chart review and the emergency physician who is familiar with this patient. Hospital Course 86-year-old female presents status post ground level fall Patient suffered a ground-level fall yesterday however she is currently clinically stable. The patient has had increasing falls most likely secondary to an increasing and dementia as well as peripheral vascular disease that the patient admits to. Patient is clinically stable to be discharged to [facility]. Patient is being discharged to SNF in stable condition. Ground level fall -Consult PT and OT -Negative for fracture -Placement needed Cataracts -Continue home medications Chronic back and neck pain (most likely secondary to arthritis) -Continue home pain meds Peripheral vascular disease -Continue home dose of Lyrica Hypertension -Continue home meds Hyperlipidemia -Continue home meds Questionable history of A. fib -Continue Xeralto -Patient is currently taking Xeralto and has an irregular heartbeat could possibly be secondary to chronic history of A. fib or could be secondary to a history of DVT. When looking throughout the patient's history during the chart review there was no signs of DVT and ultrasound seemed to pull this out however I could not find anything as to why the patient was taking Xeralto. At this time because the patient does have an irregular heartbeat and may be secondary to a history of A. fib which seems to be chronic and stable. DVT prophylaxis -SCDs Code Status: Unknown patient has dementia and no family was present Exam Vital Signs (Last) Date Time Temp Pulse Resp B/P Pulse Ox O2 Delivery O2 Flow Rate FiO2 11/16/16 08:03 36.3 87 18 130/73 99 Room Air Exam Physical Exam: GEN: Patient was awake, alert, oriented to self and present situations, and place HEENT: Pupils equal round and reactive to light, extraocular eye muscles intact , Neck soft supple, trachea midline, nomocephalic/atraumatic CV: +S1/S2, irregular, no murmurs auscultated Respiratory: CTAB, no wheezes, rales, rhonchi GI: +bowel sounds x4, soft, compressible, nontender to palpation EXT: no clubbing, cyanosis, +1 pitting edema bilaterally Neuro: Cranial nerves II-XII grossly intact Psych: mood and affect were appropriate Test 11/15/16 10:12 11/15/16 10:20 White Blood Count 5.2th/mm3 (3.8-10.1) Red Blood Count 3.71mil/mm3 (3.90-5.20) Hemoglobin 10.7g/dL (12.0-15.6) Hematocrit 35.3% (35.0-46.0) Mean Corpuscular Volume 95.1fL (81-100) Mean Corpuscular Hemoglobin 28.8pg (27.0-35.0) Mean Corpuscular Hemoglobin Concent 30.3% (32.0-37.0) Red Cell Distribution Width 15.2% (12.3-15.4) Platelet Count 188bil/L (150-400) Neutrophils (%) (Auto) 73.4% (40-74) Lymphocytes (%) (Auto) 8.3% (14-46) Monocytes (%) (Auto) 16.2% (4-12) Eosinophils (%) (Auto) 1.5% (0-5) Basophils (%) (Auto) 0.4% (0-3) Sodium Level 139mEq/L (134-144) Potassium Level 3.7mEq/L (3.5-5.2) Chloride Level 102mEq/L (97-108) Carbon Dioxide Level 22mmol/L (18-29) Blood Urea Nitrogen 17mg/dL (8-27) Creatinine 0.59mg/dL (0.57-1.00) Estimat Glomerular Filtration Rate 139mL/min (>59) Glucose Level 96mg/dL (60-99) Calcium Level 9.4mg/dL (8.5-10.1) Total Bilirubin 1.4mg/dL (0.0-1.2) Aspartate Amino Transf (AST/SGOT) 13U/L (0-50) Alanine Aminotransferase (ALT/SGPT) 6U/L (0-32) Alkaline Phosphatase 68U/L (25-165) Total Protein 6.4g/dL (6.4-8.4) Albumin 3.5g/dL (3.4-5.0) Hold [place]tega Top Tube Received (Received) Urine Color Dark yellow (YELLOW) Urine Appearance Clear (CLEAR,HAZY) Urine pH 5.0 (5.0-8.0) Urine Specific [place] 1.025 (1.003-1.035) Urine Protein Tracemg/dL (NEG,TRACE) Urine Glucose (UA) Negativemg/dL (NEGATIVE) Urine Ketones 15mg/dL (NEGATIVE) Urine Occult Blood Negative (NEGATIVE) Urine Nitrite Negative (NEGATIVE) Urine Bilirubin Negative (NEGATIVE) Urine Urobilinogen Normalmg/dL (NORMAL) Urine Leukocyte Esterase Negative (NEGATIVE) Urine RBC 0-2/hpf (0-2) Urine WBC 0-5/hpf (0-5) Urine Epithelial Cells Occasional/hpf (NONE-MOD) Urine Crystals None seen (NONE SEEN) Urine Bacteria None/hpf (NONE-FEW) Urine Hyaline Casts Occasional/lpf (NONE) Urine Granular Casts Occasional (NONE SEEN) Urine Waxy Casts None seen (NONE SEEN) Urine Red Blood Cell Casts None seen (NONE SEEN) Urine White Blood Cell Casts None seen (NONE SEEN) Urine Mucus Present (None Seen) Urine Trichomonas None seen (NONE SEEN) Urine Yeast None (NONE SEEN) Urinalysis Comment None Urine Culture Reflexed Not indicated Discharge Medications Discharge Medications Atorvastatin (Lipitor) 20 Mg Tablet 20 MG PO HS (Reported) Dorzolamide HCl/Timolol Maleat (Dorzolamide-Timolol Eye Drops) 10 Ml Drops 1 GTT BOTH_EYES BID (Reported) Latanoprost (Latanoprost) 2.5 Ml Drops 1 GTT OP LEFT EYE HS DAILY (Reported) Polyethylene Glycol 3350 (Miralax) 17 Gm Powd.pack 17 GM PO DAILY (Reported) Pregabalin (Lyrica) 75 Mg Capsule 75 MG PO BID (Reported) Rivaroxaban (Xarelto) 20 Mg Tablet 20 MG PO DAILY (Reported) Sertraline HCl (Sertraline) 50 Mg Tablet 50 MG PO DAILY (Reported) Spironolactone (Spironolactone) 25 Mg Tablet 25 MG PO DAILY (Reported) As needed Acetaminophen (Acetaminophen) 325 Mg Tablet 650 MG PO Q4H PRN PRN For Pain ( Reported) Magnesium Hydroxide (Milk of Magnesia) 400 Mg/5 Ml Oral.susp 30 ML PO DAILY PRN PRN For Constipation (Reported) Polyvinyl Alcohol/Povidone/Pf (Refresh Classic Eye Drops) 1 Each Droperette 1 EACH BOTH_EYES q2 hours PRN PRN dry eyes (Reported) Followup Plan Discharge Diet: No restrictions Discharge Activity: No restrictions (Gradually return to dialy activities) Follow-up with PCP in: 1 week (Please follow up with the PCP at [facility] or your own PCP) Time spent 30 minutes Kaci Montgomery DO Nov 16, 2016 11:20
--- NOTE | 2016-11-16 14:55 | NUR ---
Discharge note- Oriented to self, but forgetful to place and events leading to hospitalization. Up with standby assist to bedside commode. Medicated for complaint of left knee pain with Tylenol. Discharged to [facility]. Report called to receiving nurse.
[2017-01-18] MEDS ORDERED: CHOL200047 PO (12:58)
[2017-01-18] MEDS ORDERED: FOLI0.4T2 PO (12:58)
[2017-01-18] MEDS ORDERED: CYAN500 PO (12:58)
[2017-01-18] MEDS ORDERED: CHOL500050 PO (12:58)
== END 2016-11-16 11:25 ==
LOC: SED 09:11 → MOC 16:23
PROVIDERS: ADMIT Neuromusculoskeletal Medicine & OMM; ATTEND Neuromusculoskeletal Medicine & OMM
DX: S80.02XA Contusion of left knee, initial encounter (principal); F03.90 Unspecified dementia, unspecified severity, without behavioral disturbance, psychotic disturbance, mood disturbance, and anxiety; R29.6 Repeated falls; Z75.1 Person awaiting admission to adequate facility elsewhere; C56.9 Malignant neoplasm of unspecified ovary; C48.2 Malignant neoplasm of peritoneum, unspecified; I10 Essential (primary) hypertension; E78.5 Hyperlipidemia, unspecified; W18.30XA Fall on same level, unspecified, initial encounter; Y93.9 Activity, unspecified; Y92.199 Unspecified place in other specified residential institution as the place of occurrence of the external cause; Y99.8 Other external cause status; H26.9 Unspecified cataract; M54.9 Dorsalgia, unspecified; M54.2 Cervicalgia; G89.29 Other chronic pain; I73.9 Peripheral vascular disease, unspecified; Z79.01 Long term (current) use of anticoagulants
CPT/HCPCS: 36415; 72220; 73562; 73610; 73700; 80053; 81000; 85025; 92610; 93005; 97161; 99285; G0378; G8978; G8979

== ENCOUNTER 2017-04-23 19:36 | Inpatient (IN) | payer MEDICARE ==
[~2017-04-23] VITALS: Ht 180.3 cm; Wt 79.8 kg
[~2017-04-23 19:36] MED LIST changes: +CHOL200047 PO; +CHOL500050 PO; -DOCU-41 PO; +FUR20 PO; +LORA0.5T PO; -LOV40 SUBQ; -MAGN400O4 PO; -OXYC-537 PO; +POLY1DRO OP; +QUET25TA73 PO; +SPIR25TA3 PO; -SPIR50TA2 PO
[2017-04-23 19:49] VITALS: BP 109/67; PULSE 109; RESP 15; O2SAT 96
--- NOTE | 2017-04-23 20:04 | ED.REPORT ---
HPI-Dyspnea / Wheezing Date of Service Apr 23, 2017 ED Provider: Júnior Prescott MD Pt is a 87 year old female with a history of dementia, hypertension, polyneuropathy, and ovarian cancer with ascites who presents to the ED via EMS from [facility] with concern of SOB onset today. Per [facility], they were concerned for SOB and low O2 levels in the 70's and 80's. Per EMS, her O2 readings were variable from 60-96% dependent on the finger. Per pt's daughter, pt had vomited three times in the last 24 hours and thinks that [facility] sent her here for her ascites and not SOB. Pt denies abdominal pain, chest pain, SOB , or any other symptoms at this time. She has an appointment with Dr. German in a few days to drain her ascites. The patient herself is unable to provide any significant or meaningful history. Nursing Notes Stated Complaint: SHORTNESS OF BREATH Chief Complaint: Respiratory Distress Nursing Notes Reviewed: Yes Allergies: Coded Allergies: Penicillins (Verified Allergy, Unknown, 11/15/16) adhesive tape (Verified Allergy, Unknown, 11/15/16) carboplatin (Verified Allergy, Unknown, 11/15/16) cephalexin (Verified Allergy, Unknown, 11/15/16) ciprofloxacin (Verified Allergy, Unknown, 11/15/16) diclofenac (Verified Allergy, Unknown, 11/15/16) gabapentin (Verified Allergy, Unknown, 11/15/16) Uncoded Allergies: FRAGANCE (Allergy, Unknown, 11/21/14) VICKS VAPORUB INGREDIENTS (Allergy, Unknown, 11/21/14) Scheduled Atorvastatin (Lipitor) 20 Mg Tablet 20 MG PO HS Cholecalciferol (Vitamin D3) (Vitamin D3) 50,000 Unit Capsule 50,000 UNIT PO WEEKLY Take 2 capsules weekily times one month Cholecalciferol (Vitamin D3) (Vitamin D3) 2,000 Unit Capsule 2,000 UNIT PO DAILY Dorzolamide HCl/Timolol Maleat (Dorzolamide-Timolol Eye Drops) 10 Ml Drops 1 GTT BOTH_EYES BID Furosemide (Furosemide) 40 Mg Tablet 40 MG PO DAILY Latanoprost (Latanoprost) 2.5 Ml Drops 1 GTT OP LEFT EYE HS DAILY Polyethylene Glycol 3350 (Miralax) 17 Gm Powd.pack 17 GM PO DAILY Pregabalin (Lyrica) 75 Mg Capsule 75 MG PO BID Quetiapine Fumarate (Quetiapine Fumarate) 25 Mg Tablet 12.5 MG PO DIRECTED Sertraline HCl (Sertraline) 50 Mg Tablet 75 MG PO HS Spironolactone (Spironolactone) 25 Mg Tablet 25 MG PO DAILY Scheduled PRN Acetaminophen (Acetaminophen) 325 Mg Tablet 650 MG PO Q4H PRN PRN For Pain Lorazepam (Lorazepam) 0.5 Mg Tablet 0.5 MG PO q6 PRN PRN For Insomnia Ondansetron (Ondansetron) 8 Mg Tablet 8 MG PO TID PRN PRN For Nausea Polyvinyl Alcohol/Povidone/Pf (Refresh Classic Eye Drops) 1 Each Droperette 1 EACH BOTH_EYES q2 hours PRN PRN dry eyes Miscellaneous Medications Polyvinyl Alcohol/Povidone/Pf (Refresh Classic Eye Drops) 1 Each Droperette 1 EACH OP General Time Seen by MD: 20:03 Transferred From: half-way Chief Complaint Shortness of breath Hx Obtained From: Patient, 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 Ascites Reports: Cancer, Hypertension Past Surgical History Knee surgery cervical spine laminectomy Reports: Cataract surgery, Hysterectomy Reports: Back/neck surgery Family History Noncontributory Smoking History Never Smoker Social History Patient lives at [facility]. 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 GI: Reports: Hematemesis (in ED ), Vomiting (x3 per daughter), Denies: Abdominal pain Physical Exam Initial Vital Signs Vital Signs (First) Date Time Temp Pulse Resp B/P Pulse Ox O2 Delivery O2 Flow Rate FiO2 04/23/17 19:49 37.5 109 15 109/67 96 Room Air 04/23/17 21:30 2 Initial VS: Reviewed Head / Eyes: Atraumatic, Normocephalic Extremities: Vascular intact, Neuro intact, No swelling, No tenderness Skin: Warm, Dry, No cyanosis Neurologic: Alert, Oriented, Nonfocal Psychiatric: Mood/affect normal, Behavior normal, Normal thought content General/Constitutional: Awake, Alert Neck: Supple, Full range of motion Respiratory / Chest: Atraumatic, Breath sounds NL, Breath sounds = bilat, No respiratory distress Cardiovascular: Heart rate NL, Regular rhythm, Heart sounds NL Anasarca Abdomen: Non-tender Abdomen distended, full of ascites Interpretation & Diagnostics Lab Results Interpretation Result Diagram: 04/23/17203204/23/172032 Test 04/23/17 20:21 04/23/17 20:33 04/23/17 20:59 Hold Purple Top Tube Received (Received) Hold Blue Top Tube Received (Received) Hold [place] Top Tube Received (Received) Hold Ortega Top Tube Received (Received) White Blood Count 10.3th/mm3 (3.8-10.1) Red Blood Count 3.50mil/mm3 (3.90-5.20) Hemoglobin 10.1g/dL (12.0-15.6) Hematocrit 31.6% (35.0-46.0) Mean Corpuscular Volume 90.3fL (81-100) Mean Corpuscular Hemoglobin 28.9pg (27.0-35.0) Mean Corpuscular Hemoglobin Concent 32.0% (32.0-37.0) Red Cell Distribution Width 14.8% (12.3-15.4) Platelet Count 332bil/L (150-400) Neutrophils (%) (Auto) 84.4% (40-74) Lymphocytes (%) (Auto) 3.7% (14-46) Monocytes (%) (Auto) 11.1% (4-12) Eosinophils (%) (Auto) 0.4% (0-5) Basophils (%) (Auto) 0.1% (0-3) Prothrombin Time 11.1sec (8.1-12.5) Prothromb Time International Ratio 1.04ratio Sodium Level 132mEq/L (134-144) Potassium Level 4.5mEq/L (3.5-5.2) Chloride Level 95mEq/L (97-108) Carbon Dioxide Level 25mmol/L (18-29) Blood Urea Nitrogen 52mg/dL (8-27) Creatinine 0.93mg/dL (0.57-1.00) Estimat Glomerular Filtration Rate 82mL/min (>59) Glucose Level 145mg/dL (60-99) Calcium Level 8.6mg/dL (8.5-10.1) Phosphorus Level 3.7mg/dL (2.5-4.9) Magnesium Level 2.0mg/dL (1.6-2.6) Total Bilirubin 0.5mg/dL (0.0-1.2) Aspartate Amino Transf (AST/SGOT) 18U/L (0-50) Alanine Aminotransferase (ALT/SGPT) 9U/L (0-32) Alkaline Phosphatase 79U/L (25-165) Total Protein 5.9g/dL (6.4-8.4) Albumin 2.8g/dL (3.4-5.0) Urine Color Yellow (YELLOW) Urine Appearance Clear (CLEAR,HAZY) Urine pH 5.5 (5.0-8.0) Urine Specific [place] 1.020 (1.003-1.035) Urine Protein Negativemg/dL (NEG,TRACE) Urine Glucose (UA) Negativemg/dL (NEGATIVE) Urine Ketones Negativemg/dL (NEGATIVE) Urine Occult Blood Negative (NEGATIVE) Urine Nitrite Negative (NEGATIVE) Urine Bilirubin Negative (NEGATIVE) Urine Urobilinogen Normalmg/dL (NORMAL) Urine Leukocyte Esterase Negative (NEGATIVE) Urine RBC 0-2/hpf (0-2) Urine WBC 0-5/hpf (0-5) Urine Epithelial Cells Few/hpf (NONE-MOD) Urine Crystals None seen (NONE SEEN) Urine Bacteria None/hpf (NONE-FEW) Urine Hyaline Casts None/lpf (NONE) Urine Granular Casts None seen (NONE SEEN) Urine Waxy Casts None seen (NONE SEEN) Urine Red Blood Cell Casts None seen (NONE SEEN) Urine White Blood Cell Casts None seen (NONE SEEN) Urine Mucus None seen (None Seen) Urine Trichomonas None seen (NONE SEEN) Urine Yeast None (NONE SEEN) Urinalysis Comment None Urine Culture Reflexed Not indicated Re-Eval/Medical Decision Med Decision/Clinical Course I had multiple discussions with the patient's daughter who reiterates information on the POLST form that her mother would not want resuscitation nor is she interested necessarily in life prolongation. Her primary interest is in comfort. Source of Hx: Old records Re-Evaluation/Progress #1: Time of Eval: 20:10 Re-Evaluation/Progress Note: Updated daughter on pt's condition. Re-Evaluation/Progress #2: Time of Eval: 20:36 Re-Evaluation/Progress Note: Discussed information discussed with Dr. Theodore and [facility]. She wants medications to help treat pt's SOB and pain if needed. Re-Evaluation/Progress #3: Time of Eval: 20:43 Re-Evaluation/Progress Note: Called [facility] where pt resides to update them on her condition. Discussed the plan for admission. Consultation #1: Referral / Consult Name: Swapnil Theodore MD Call Returned at: 20:28 Sock Examiner: Agrees with eval, Agrees with plan Note: Discussed pt's case with primary care doctor, Dr. Theodore, for more information. Consultation #2: Referral / Consult Name: Flash Smith MD Consulted With: Hospitalist Call Returned at: 20:58 Sock Examiner: Will see patient, Agrees with plan, Accepts admit Note: Discussed pt's case with hospitalist, Dr. Smith. He accepts admission. Counseled Regarding: Diagnosis, Lab results, Need for admission Discharge & Departure Impression: Primary Impression: Vomiting Vomiting type: unspecified Vomiting Intractability: unspecified Nausea presence: with nausea Qualified Code: R11.2 - Nausea with vomiting, unspecified Additional Impressions: Abdominal pain Abdominal location: unspecified location Qualified Code: R10.9 - Unspecified abdominal pain Ovarian cancer Laterality: unspecified laterality Qualified Code: C56.9 - Malignant neoplasm of unspecified ovary Disposition: ADMITTED TO HOSPITAL Discharge Condition All VS Reviewed: Yes Condition: Stable Referrals: Everardo Salazar Attestation Portions of this note were transcribed by Britney Pan. I, Dr. Prescott, personally performed the history, physical exam and medical decision-making; I reviewed and confirmed the accuracy of the information in the transcribed note. copies to: Everardo Salazar Kirk H MD Apr 23, 2017 20:03 Britney Pan Apr 23, 2017 20:10
[2017-04-23 20:30] VITALS: BP 104/86; PULSE 109; RESP 22; O2SAT 97
[2017-04-23 20:38] LABS: BASOPHILS % (AUTO) 0.1 % (0-3); EOSINOPHILS % (AUTO) 0.4 % (0-5); MONOCYTES % (AUTO) 11.1 % (4-12); Mean Corpuscular Hemoglobin 28.9 pg (27.0-35.0); Mean Corpuscular Volume 90.3 fL (81-100); NEUTROPHILS % (AUTO) 84.4 % (40-74); Platelet Count 332 bil/L (150-400)
[2017-04-23] MEDS ORDERED: Promethazine Inj 25 MG in 0.9% Sodium Chloride 50 ML IV ONE (20:45)
[2017-04-23] MEDS ORDERED: HYDROmorphone 0.5 mg/0.5 mL iSecure Syringe IVPUSH PRN (20:45)
[2017-04-23] MEDS ORDERED: Ondansetron 2 mg/mL 2 mL Inj IVPUSH PRN ×2 (20:45→21:10)
[2017-04-23 21:00] LABS: INR 1.04 ratio
[2017-04-23] MEDS ORDERED: Polyethylene Glycol (PEG) 17 Gm Powder PO PRN (21:10)
[2017-04-23] MEDS ORDERED: Alum-Mag Hydrox-Simeth 30 mL Suspension PO PRN (21:10)
--- NOTE | 2017-04-23 21:11 | PCM.HPMED ---
Subjective Date of Service Apr 23, 2017 Primary Provider: Admitting Physician: Primary Care Physician: Angela Gregorio MD Attending Physician: Chief Complaint: Nursing facility states decreased oxygen saturations. Patient has no complaints. 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 This evening [facility] reports decreased oxygen saturations in the 70s although the patient never expressed symptoms of shortness of breath. Due to the patient's dementia history was unable to be obtained. The following information has been gathered from [facility], ED reports, and outpatient records. [facility] also noted weight gain of approximately 2 pounds per day over the last 2 weeks with increasing abdominal girth and lower extremity edema. PCP increased her Lasix to 40 mg daily due to the substantial weight gain along with wrapping the patient's legs in attempts to improve venous return and diuresis. Patient was scheduled for a follow-up appointment with Dr. German on 04/24/2017 along with a paracentesis on 05/04/2017. ED physician states that he had an extensive conversation with the patient's daughter. During this conversation it was clarified that the goal of care is comfort. The daughter also voiced understanding that the patient's life expectancy is not long. She reiterates that her mother's wishes were quality of life and that at this point with her carcinoma in the setting of her progressive dementia quality of life is rapidly diminishing. It was determined on the phone that as the patient is currently not experiencing or expressing pain we would not proceed with a paracentesis this evening. The concern of decreased oxygen saturations appears to be more of a technical difficulty as it is difficult to get a good pleth on the oximeter. When a good pleth is obtained O2 sats are above 95%. Presentation to the ED patient's temperature was 37.5, pulse 109, respiratory rate 15 with oxygen saturation are 96% on room air, blood pressure of 109/67. Initial labs reveal a slight leukocytosis of 10.3, hemoglobin of 10.1, hematocrit 31.6, sodium of 132, chloride 95, BUN of 52, and an albumin of 2.8. Chest x-ray obtained showed elevated right hemidiaphragm with possible right pleural effusion likely secondary to her significant ascites. As discussed above as patient appears comfortable and is not complaining of abdominal pain or shortness of breath no significant interventions were immediately made. Review of Systems: Review of systems unable to be obtained due to the patient's dementia. Allergies Coded Allergies: Penicillins (Verified Allergy, Unknown, 04/24/17) adhesive tape (Verified Allergy, Unknown, 04/24/17) carboplatin (Verified Allergy, Unknown, 04/24/17) cephalexin (Verified Allergy, Unknown, 04/24/17) ciprofloxacin (Verified Allergy, Unknown, 04/24/17) diclofenac (Verified Allergy, Unknown, 04/24/17) gabapentin (Verified Allergy, Unknown, 04/24/17) Uncoded Allergies: FRAGANCE (Allergy, Unknown, 11/21/14) VICKS VAPORUB INGREDIENTS (Allergy, Unknown, 11/21/14) Home Medications Atorvastatin 20 mg nightly Furosemide 40 mg daily Lorazepam when necessary Zofran when necessary MiraLAX 17 g daily Lyrica 75 mg twice a day Seroquel 12.5 mg Spironolactone 25 mg daily Sertraline 75 mg nightly PMH Stage IV primary peritoneal carcinoma/ovarian cancer Cataracts Malignant ascites Hypertension Hyperlipidemia Dementia Surgical History Knee surgery Cervical spine laminectomy Cataract surgery Hysterectomy Family History Sister - [place] Father - colon cancer Social History 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 HEENT: Temporal wasting. Dry oral mucosa. Pupils equal, round, and reactive to light and accommodation. Anicteric sclerae. Neck: Supple with full range of motion. No jugular venous distension. Cardiovascular: Regular rate and rhythm with no murmurs, rubs, or gallops appreciated. Pulmonary: Clear to auscultation bilaterally with no crackles, wheezes, or rhonchi. Normal respiratory effort with no use of accessory muscles. Chest: Right subcutaneous port with no overlying erythema. Abdomen: Distended, dull to percussion, with fluid wave present. Nontender. Bowel tones present. Extremities: Pitting edema standing to sacrum with associated pressure ulcers. Lower extremities with dressings in place. Neurological: Cranial nerves grossly intact. Decreased muscle strength equal bilaterally. Wheelchair bound. Psychiatric: Demented, lethargic. Unable to answer questions appropriately. Not oriented to person, place, or time. Lab and Diagnostics Result Diagram: 04/23/[id number]/[id number] Cardiac Echo Impressions Echocardiogram Report Name: JASON FARLEY Study Date: 07/19/2015 Interpretation Summary The left ventricle is normal in size. The ejection fraction is estimated to be 55-60%. Septal motion is consistent with conduction abnormality. The right ventricle is normal in size, thickness and function. Pulmonary artery pressures cannot be estimated because of the lack of a measurable TR jet velocity. The left atrial size is normal. The right atrium is normal in size. There is no significant valvular heart disease. The ascending aorta is mildly enlarged. There is an echogenic strand in the IVC. It doesn't appear to be a thrombus but cannot be excluded. Consider abdominal ultrasound to rule out thrombus in IVC. The IVC is of normal diameter and collapses greater than 50% with a sniff. This suggests a low right atrial pressure of 3 mm Hg. 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 This evening [facility] reports decreased oxygen saturations in the 70s although the patient never expressed symptoms of shortness of breath. Acute Shortness of breathe due to Primary peritoneal carcinoma ovarian cancer complicated by malignant ascites, extensive lower extremity pitting edema and pressure ulcers, present on admission, active. - Oncologist is Dr. German. Patient currently not being treated but had follow- up appointment scheduled for 04/24/2017 due to increasing ascites and edema. - Discussion with patient's daughter by ED physician clarified the goals of care are comfort and that she is DNR/DNI. - Day team to notify Dr. German. - Recommend palliative care consult. - Pending further discussion with daughter and Dr. German may consider therapeutic paracentesis. Patient does not appear in any discomfort currently. Anasarca with lower extremity skin breakdown, present on admission, active. - Continue home medication: Spironolactone 25 mg daily and furosemide 40 mg daily - Wound care consult. Ruled out versus resolved hypoxia, present on admission, active. - [facility] reported oxygen saturation of 70%. On admission to the ED difficult to obtain a good pleth but once obtained O2 sats were consistently above 95%. - Patient may have been hypoxic at [facility] but more likely technical difficulty obtaining accurate reading. Chronic stable conditions Polyneuropathy - Continue home medication: Lyrica 75 mg twice a day. Depression and anxiety - Continue home medication: Sertraline 75 mg daily, lorazepam 0.5 mg every 6 hours when necessary, and Seroquel 12.5 mg daily. Hyperlipidemia - Continue home medication: Atorvastatin 20 mg nightly Dementia PRN Medications - Acetaminophen as needed for mild pain/fever/headache - Bowel regimen: MiraLAX 17 g daily. - Antiemetic as needed Patient is admitted under observation status with expected length of stay less than 2 midnights due to severity of presenting symptoms, risk of adverse event, and complexity of treatment plan. Pain Evaluation: Adequate Pain Control GI Prophylaxis: Not indicated VTE Prophylaxis: Sub-Q Enoxaparin Resuscitation Status: DNR/DNI:Do Not Resuscitate/Intubate Attending Statement The patient was seen and examined together with Dr. Muro on 04/23 and I agree with the history, exam and plan as outlined in the note above. DIANA MURO DO Apr 23, 2017 21:11 Flash Smith MD Apr 24, 2017 06:27 Dementia Depression and anxiety - Continue home medication: Sertraline 75 mg daily, lorazepam 0.5 mg every 6 hours when necessary, and Seroquel 12.5 mg daily. Hyperlipidemia - Continue home medication: Atorvastatin 20 mg nightly PRN Medications - Acetaminophen as needed for mild pain/fever/headache - Bowel regimen: MiraLAX 17 g daily. - Antiemetic as needed Patient is admitted under observation status with expected length of stay less than 2 midnights due to severity of presenting symptoms, risk of adverse event, and complexity of treatment plan. DIANA MURO DO Apr 23, 2017 21:11
[2017-04-23 21:19] LABS: APPEARANCE,URINE CLEAR (CLEAR,HAZY); COLOR,URINE YELLOW (YELLOW); OCCULT BLOOD,URINE NEGATIVE (NEGATIVE); PH,URINE 5.5 (5.0-8.0); UROBILINOGEN,URINE NORMAL (NORMAL)
[2017-04-23 21:30] VITALS: BP 97/79; PULSE 114; RESP 20; O2SAT 96
[2017-04-23 21:31] LABS: Phosphorus 3.7 mg/dL (2.5-4.9)
[2017-04-23] MEDS: HYDROmorphone 1 mg/mL Inj IVPUSH PRN (21:47)
[2017-04-23 22:07] VITALS: BP 122/72; PULSE 110; RESP 16; O2SAT 92
[2017-04-23] MEDS ORDERED: ONDA-54 PO (22:37)
[2017-04-23] MEDS ORDERED: FURO40TA4 PO (22:37)
[2017-04-23 22:58] VITALS: BP 120/78; PULSE 70; RESP 16; O2SAT 94
[2017-04-23] MEDS ORDERED: LORazepam 0.5 mg Tablet PO PRN (23:30)
[2017-04-23] MEDS ORDERED: 0.9% Sodium Chloride 500 ML IV SCH (23:45)
--- NOTE | 2017-04-23 23:52 | NUR ---
ADMIT; 87 yr old female to room 1029 with nausea vomiting. See admit screen. Appears to be an unaccessed stephon cath right chest.
[2017-04-24] VITALS (13 sets, daily range): BP systolic 92–108; BP diastolic 55–77; PULSE 104–181; RESP 16–20; O2SAT 96–97
[2017-04-24] MEDS: HYDROmorphone 1 mg/mL Inj IVPUSH PRN (02:20)
[2017-04-24 03:29] LABS: BASOPHILS % (AUTO) 0 % (0-3); EOSINOPHILS % (AUTO) 0.4 % (0-5); MONOCYTES % (AUTO) 11.9 % (4-12); Mean Corpuscular Hemoglobin 28.8 pg (27.0-35.0); Mean Corpuscular Volume 90.2 fL (81-100); NEUTROPHILS % (AUTO) 83.7 % (40-74); Platelet Count 287 bil/L (150-400)
--- NOTE | 2017-04-24 03:59 | NUR ---
PAIN; Restless, trying to hang legs off of bed. Dilaudid given- effective for c/o legs pain. Came to the floor with wrapped legs (crow wrap) from snf. Slept afterwards. [employer]; reports heart rate 178 and holding. Pt denies chest pain/sob etc. Dr. Soliman notified. Heart rate decreased to 114/minute. Metoprolol given po in applesauce. Addendum: 04/24/17 at 0407 by DIANA VIERA RN BP 95/68.
[2017-04-24] MEDS ORDERED: Polyethylene Glycol (PEG) 17 Gm Powder PO SCH (08:30)
[2017-04-24] MEDS ORDERED: Atropine 1% 5 mL Ophthalmic Solution PO PRN (12:15)
[2017-04-24] MEDS ORDERED: Morphine 100 mg/100 mL NS 100 MG in IV Premix 1 EACH IV SCH (12:15)
[2017-04-24] MEDS ORDERED: Haloperidol 5 mg/mL Inj IVPUSH PRN (12:15)
[2017-04-24] MEDS ORDERED: LORazepam 100 mg/100 mL NS 100 MG in IV Premix 1 EACH IV PRN (12:15)
[2017-04-24] MEDS ORDERED: Glycopyrrolate 0.2 MG/ML 1mL Inj IVPUSH PRN (12:15)
--- NOTE | 2017-04-24 12:36 | NUR ---
Inpatient Wound Nurse Patient assessed for BLE wounds, ulcerations, cellulitis. None found. Patient was wrapped in a layer of Kerlix followed by two layers of BRAD wraps. The more interior layer of BRAD wrap appeared very stretched out. On both legs the wraps were on only from ankles to mid-calf. A couple of ABD pads were found inside the Kerlix but no moisture or drainage was noted, and a very faint, yellow stain was noted on ABD removed from L anterior ankle. Some splotchy, reddened areas are noted in random pattern on BLE, but no warmth, no mushy hot-spots. L extremity is cooler than R with much more edema than R. Both legs were wrapped with Kerlix and Coban from distal toes to popliteal space. These wraps can stay on up to five days. CWON RN will change wraps toward end of this week. Patient was talkative throughout care, pleasant, unable to make any meaningful contribution to health history or wound care regimen.
--- NOTE | 2017-04-24 12:38 | PCM.CONPAL ---
Date of Service Apr 24, 2017 Date of Hospital Admission: Apr 23, 2017 at 21:41 Date of Palliative Consult: Apr 24, 2017 Requesting Provider: DIANA MURO DO Reason Palliative Care Consult: Goals of Care Discussion Hospital Unit @time of consult: Orthopedic/Surgical Care Palliative Care Recommendation 87-year-old female with advanced ovarian cancer, carcinomatosis, progressive dementia, coagulopathy, hypertension, etc. admitted with progressive decline at home. Per patient and her daughter, wishes to transition to comfort care. Palliative medicine consulted to assist with this process. Summary of palliative recommendations: -Symptom management (Pain/other)- start morphine drip 1 mg per hour with additional boluses/titration as needed for comfort. IV/PO lorazepam, haloperidol , ondansetron, etc. as needed further symptom management. Ultrasound with paracentesis for comfort. Monitor and adjust medications as needed, and reviewed plans and wishes for ongoing care further with her daughter Maria Isabel Thomas when she arrived in midafternoon. Maria Isabel's contact numbers: [phone] c [phone] w [phone] Continue her Lyrica, sertraline, etc. as before for her comfort. Did advise the nurse that if the patient is unwilling/unable to take oral medications that they may be held. -DPOA/Advanced Directives/POLST- DNR/DNI/comfort care. Plan on completing a POLST prior to discharge (if the patient does not here). Will monitor patient's progress over the next 24-48 hours before determining whether end-of- life care will continue here versus transition to SNF with end-of-life care. 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 Anasarca with lower extremity skin breakdown, present on admission, active. Ruled out versus resolved hypoxia, present on admission, active. Chronic stable conditions Polyneuropathy Depression and anxiety Hyperlipidemia Dementia Problems: End of Life Preferences DNR/DNI/comfort Goals of Care Patient requests comfort care Disposition To be determined Resuscitation Status Resuscitation Status: DNR/DNI:Do Not Resuscitate/Intubate . 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 This evening [facility] reports decreased oxygen saturations in the 70s although the patient never expressed symptoms of shortness of breath. Due to the patient's dementia history was unable to be obtained. The following information has been gathered from [facility], ED reports, and outpatient records. [facility] also noted weight gain of approximately 2 pounds per day over the last 2 weeks with increasing abdominal girth and lower extremity edema. PCP increased her Lasix to 40 mg daily due to the substantial weight gain along with wrapping the patient's legs in attempts to improve venous return and diuresis. Patient was scheduled for a follow-up appointment with Dr. German on 04/24/2017 along with a paracentesis on 05/04/2017. ED physician states that he had an extensive conversation with the patient's daughter. During this conversation it was clarified that the goal of care is comfort. The daughter also voiced understanding that the patient's life expectancy is not long. She reiterates that her mother's wishes were quality of life and that at this point with her carcinoma in the setting of her progressive dementia quality of life is rapidly diminishing. It was determined on the phone that as the patient is currently not experiencing or expressing pain we would not proceed with a paracentesis this evening. The concern of decreased oxygen saturations appears to be more of a technical difficulty as it is difficult to get a good pleth on the oximeter. When a good pleth is obtained O2 sats are above 95%. Presentation to the ED patient's temperature was 37.5, pulse 109, respiratory rate 15 with oxygen saturation are 96% on room air, blood pressure of 109/67. Initial labs reveal a slight leukocytosis of 10.3, hemoglobin of 10.1, hematocrit 31.6, sodium of 132, chloride 95, BUN of 52, and an albumin of 2.8. Chest x-ray obtained showed elevated right hemidiaphragm with possible right pleural effusion likely secondary to her significant ascites. As discussed above as patient appears comfortable and is not complaining of abdominal pain or shortness of breath no significant interventions were immediately made. Palliative medicine consulted to assist in provision of comfort care and further determination of goals Prior to visiting patient, reviewed her records in the EMR in detail, both inpatient and outpatient over the last several years. Spoke with her bedside nurse for update. Attempted to contact patient's daughter Maria Isabel by phone but there was no answer. I left my cell number with the nurses and they called in the early afternoon- I met with patient's daughter Maria Isabel, reviewed her admission diagnoses, patient's recent progressive deterioration, and patient and family wishes for ongoing care. Confirmed that the patient is to be comfort care. When I arrived in the room, patient was resting in bed and appeared comfortable. When I first spoken with her nurse she had reported the patient had difficulty voiding and I had ordered a Coyle catheter. This was placed with greater than 500 mL of urine output already and was still flowing. Patient was much more comfortable. She denied other particular pain or distress. She did indicate that she would be willing to have paracentesis for comfort and I have ordered that as well. Past Medical History Significant PMH Noted: Stage IV primary peritoneal carcinoma/ovarian cancer Cataracts Malignant ascites Hypertension Hyperlipidemia Dementia Surgical History Knee surgery Cervical spine laminectomy Cataract surgery Hysterectomy Social History Family Members Issues: Patient's daughter/POA wishes focus to be comfort Palliative Performance Scale PPS Patient Status: Current PPS Ambulation: Mainly Bed PPS Activity: Unable to do any activity PPS Self-Care: Considerable assistance required PPS Intake: Minimal to sips PPS Conscious Level: Full or confusion Performance Scale: 30% POLST at Time of Admission Previous POLST?: No Allergy Allergies Reviewed: Yes Medications Current Medications: Current Medications Ondansetron HCl 4 mg Q15MIN PRN IVPUSH Last administered on 04/23/17t 21:47; Admin Dose 4 MG; Start 04/23/17 at 20:45; Stop 04/24/17 at 04:00; Status DC Hydromorphone HCl 0.5 mg Q15MIN PRN IVPUSH; Start 04/23/17 at 20:45; Stop 04/24 at 20:46; Status Cancel Al Hydrox/Mg Hydrox/Simethicone 30 ml Q6H PRN PO; Start 04/23/17 at 21:10 Ondansetron HCl 4 to 8 mg Q4H PRN IVPUSH; Start 04/23/17 at 21:10 Senna 17.2 mg BID PRN PO; Start 04/23/17 at 21:10 Polyethylene Glycol 17 gm DAILY PRN PO; Start 04/23/17 at 21:10 Hydromorphone HCl 0.5 mg Q15MIN PRN IVPUSH Last administered on 04/24/17t 02:20 ; Admin Dose 0.5 MG; Start 04/23/17 at 21:31; Stop 04/24/17 at 04:00; Status DC Acetaminophen 650 mg Q4H PRN PO; Start 04/23/17 at 23:30 Atorvastatin Calcium 20 mg HS PO; Start 04/24/17 at 21:00; Stop 04/24/17 at 21: 00; Status DC Furosemide 40 mg DAILY PO; Start 04/24/17 at 08:30; Stop 04/24/17 at 12:17; Status DC Latanoprost 1 drop DAILY BOTH_EYES; Start 04/24/17 at 08:30 Lorazepam 0.5 mg Q6H PRN PO; Start 04/23/17 at 23:30 Polyethylene Glycol 17 gm DAILY PO; Start 04/24/17 at 08:30; Stop 04/24/17 at 12 :17; Status DC Pregabalin 75 mg BID PO; Start 04/23/17 at 23:30 Quetiapine Fumarate 12.5 mg DAILY PO; Start 04/24/17 at 08:30 Sertraline HCl 75 mg HS PO; Start 04/24/17 at 21:00 Spironolactone 25 mg 25 mg DAILY PO; Start 04/24/17 at 08:30; Stop 04/24/17 at 12:17; Status DC Sodium Chloride 500 ml @ 80 mls/hr Q6H15M IV Last administered on 04/24/17t 00: 43; Admin Dose 80 MLS/HR; Start 04/23/17 at 23:45; Stop 04/24/17 at 05:59; Status DC Enoxaparin Sodium 40 mg DAILY SUBQ; Start 04/24/17 at 08:30; Stop 04/24/17 at 12 :17; Status DC Morphine Sulfate 2 mg Q1H PRN IVPUSH; Start 04/24/17 at 12:15; Status UNV Lorazepam 1 mg Q1H PRN IVPUSH; Start 04/24/17 at 12:15; Status UNV Lorazepam 2 mg 2 mg Q5M PRN IVPUSH; Start 04/24/17 at 12:15; Status UNV Lorazepam/Sodium Chloride/Premix 100 ml @ 0 mls/hr Q0M PRN IV; Start 04/24/17 at 12:15; Status UNV Haloperidol Lactate Start with 1 mg, if not effective ... Q1H PRN IVPUSH; Start 04/24/17 at 12:15; Status UNV Atropine Sulfate Start with 2 drops, if ... Q1H PRN PO; Start 04/24/17 at 12:15 ; Status UNV Glycopyrrolate Start with 0.2 mg, if ... Q1H PRN IVPUSH; Start 04/24/17 at 12: 15; Status UNV Scheduled Atorvastatin (Lipitor) 20 Mg Tablet 20 MG PO HS Cholecalciferol (Vitamin D3) (Vitamin D3) 50,000 Unit Capsule 50,000 UNIT PO WEEKLY Take 2 capsules weekily times one month Cholecalciferol (Vitamin D3) (Vitamin D3) 2,000 Unit Capsule 2,000 UNIT PO DAILY Dorzolamide HCl/Timolol Maleat (Dorzolamide-Timolol Eye Drops) 10 Ml Drops 1 GTT BOTH_EYES BID Furosemide (Furosemide) 40 Mg Tablet 40 MG PO DAILY Latanoprost (Latanoprost) 2.5 Ml Drops 1 GTT OP LEFT EYE HS DAILY Polyethylene Glycol 3350 (Miralax) 17 Gm Powd.pack 17 GM PO DAILY Pregabalin (Lyrica) 75 Mg Capsule 75 MG PO BID Quetiapine Fumarate (Quetiapine Fumarate) 25 Mg Tablet 12.5 MG PO DIRECTED Sertraline HCl (Sertraline) 50 Mg Tablet 75 MG PO HS Spironolactone (Spironolactone) 25 Mg Tablet 25 MG PO DAILY Scheduled PRN Acetaminophen (Acetaminophen) 325 Mg Tablet 650 MG PO Q4H PRN PRN For Pain Lorazepam (Lorazepam) 0.5 Mg Tablet 0.5 MG PO q6 PRN PRN For Insomnia Ondansetron (Ondansetron) 8 Mg Tablet 8 MG PO TID PRN PRN For Nausea Polyvinyl Alcohol/Povidone/Pf (Refresh Classic Eye Drops) 1 Each Droperette 1 EACH BOTH_EYES q2 hours PRN PRN dry eyes Miscellaneous Medications Polyvinyl Alcohol/Povidone/Pf (Refresh Classic Eye Drops) 1 Each Droperette 1 EACH OP Objective Findings Exam Vital Sign - Last Date Time Temp Pulse Resp B/P Pulse Ox O2 Delivery O2 Flow Rate FiO2 04/24/17 10:05 117 04/24/17 08:53 Supplement Oxygen 04/24/17 08:49 36.6 18 108/77 97 3.00 Intake and Output 04/23/17 04/23/17 04/24/17 Cumulative From/Thru 15:00 23:00 07:00 04/23/17 22:58 - 04/24/17 05:18 Intake Total 500 ml 500 ml Balance 500 ml 500 ml Intake Oral 0 ml 0 ml IV Total 500 ml 500 ml # Voids 1 1 # Bowel Movements 0 0 Objective Cachectic, jaundiced appearing woman lying in bed. Head and neck without acute focal findings. Oropharynx with dry mucous membranes and mouth breathing. Lungs clear anterolaterally, heart sounds regular and rapid, abdomen distended with palpable/percussible fluid wave of ascites. Minimal diffuse tenderness; no peritoneal signs. Lower extremities with bilateral edema. Lab/Diagnostics Lab and Imaging results reviewed in detail in EMR. Time spent Total time 70 minutes; >50% face to face with patient and family, providing counselling regarding plans and recommendations, and in care coordination with her medical teams. Of the above total time, 30 minutes counseling for advanced care planning with the patient and her daughter/POA copies to: Jay Olivarez MD; WILLIE ASHTON MD, David F MD Apr 24, 2017 12:38
--- NOTE | 2017-04-24 13:03 | NUR ---
Palliative Care Order received order from Dr Calderon 04/24/17 to assist with goals of care. Patient admitted 04/23/17. Palliative Care to follow. Augustina Reynolds
--- NOTE | 2017-04-24 13:20 | PCM.PNMED ---
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 Patient was noticed to by hypoxic at the facility. She was sent to the hospital. ED physician had an extensive conversation with the patient's daughter. During this conversation it was clarified that the goal of care was comfort. Now nilda is in bed, awake, demented. I consulted palliative medicine team to help with discussion of goals of care and further plan of care regarding comfort. Exam Vital Signs Vital Sign - Last Date Time Temp Pulse Resp B/P Pulse Ox O2 Delivery O2 Flow Rate FiO2 04/24/17 10:05 117 04/24/17 08:53 Supplement Oxygen 04/24/17 08:49 36.6 18 108/77 97 3.00 Intake and Output 04/23/17 04/23/17 04/24/17 Cumulative From/Thru 15:00 23:00 07:00 04/23/17 22:58 - 04/24/17 05:18 Intake Total 500 ml 500 ml Balance 500 ml 500 ml Intake Oral 0 ml 0 ml IV Total 500 ml 500 ml # Voids 1 1 # Bowel Movements 0 0 IVs and Medications IV Fluids GENERAL: awake, demented, not in distress, resting in bed HEAD: atraumatic, normocephalic, no bruises. EYES: EOMI, anicteric, able to fully open and close eyelids SKIN: Skin color normal, turgor normal. No visible rashes EAR, NOSE, MOUTH, THROAT: Lips, oral mucosa, tongue gums, oropharynx are moist , pink, no lesions. Ears normal appearance, no lesions. NECK: no jugulovenous distention; supple ROM normal. RESPIRATORY: Lungs clear to auscultation. Good diaphragmatic excursion. CARDIAC: normal S1 and S2; no rubs, or gallops; regular rhythm ABDOMEN: Abdomen soft, non-tender, distended . BS normal. MUSCULOSKELETAL: ROM full, muscles are not tender EXTREMITIES: no pitting edema in LE, no new deformities or skin discoloration. NEURO: Alert, oriented X 1, Sensation grossly intact., Cranial nerves II-XII intact, Grossly normal motor function. PULSES: 2+ radial, 2+ carotid REVIEW OF SYSTEMS: GENERAL: no malaise, no fevers., SEE HPI HEENT: Negative for frequent or significant headaches All other reviewed and negative other than HPI. Medications Reviewed: Medications were reviewed in detail Lab and Diagnostics Result Diagram: 04/24/1730404/24/17304 Cardiac Echo Impressions Echocardiogram Report Name: JASON FARLEY Study Date: 07/19/2015 Interpretation Summary The left ventricle is normal in size. The ejection fraction is estimated to be 55-60%. Septal motion is consistent with conduction abnormality. The right ventricle is normal in size, thickness and function. Pulmonary artery pressures cannot be estimated because of the lack of a measurable TR jet velocity. The left atrial size is normal. The right atrium is normal in size. There is no significant valvular heart disease. The ascending aorta is mildly enlarged. There is an echogenic strand in the IVC. It doesn't appear to be a thrombus but cannot be excluded. Consider abdominal ultrasound to rule out thrombus in IVC. The IVC is of normal diameter and collapses greater than 50% with a sniff. This suggests a low right atrial pressure of 3 mm Hg. 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 This evening [facility] reports decreased oxygen saturations in the 70s although the patient never expressed symptoms of shortness of breath. Primary peritoneal carcinoma ovarian cancer complicated by malignant ascites, extensive lower extremity pitting edema and pressure ulcers - stable - Oncologist is Dr. German. Patient currently not being treated but had follow- up appointment scheduled for 04/24/2017 due to increasing ascites and edema. - Discussion with patient's daughter by ED physician clarified the goals of care are comfort and that she is DNR/DNI. - palliative care consulted Plan - c/w current meds - wound care Hypoxia - resolved, probably it was an error Anasarca with lower extremity skin breakdown - stable - Continue home medication - Wound care consult. Polyneuropathy, Depression and anxiety - stable - Continue current medication Hyperlipidemia - stable - Continue home medication DVT PROPHYLAXIS: Lovenox Code status: DNR/DNI Plan of care discussed with treatment team; Labs, radiology tests, Tele and ECG reviewed. Resuscitation Status: DNR/DNI:Do Not Resuscitate/Intubate Augustus Calderon MD Apr 24, 2017 13:20 Disposition: discharge after patient improves. Plan of care discussed with ED physician; Labs, radiology tests, Tele and ECG reviewed. Plan of care, medication side effects, home medication, diagnostic procedures and available alternatives were discussed and reviewed with patient/family . All questions answered. Patient/family verbalized understanding, approved and agreed to plan of care. GI Prophylaxis: Not indicated VTE Prophylaxis: Sub-Q Enoxaparin VTE Mechanical Devices: Intermittant Pneumatic CD Resuscitation Status: DNR/DNI:Do Not Resuscitate/Intubate Augustus Calderon MD Apr 24, 2017 13:20
--- NOTE | 2017-04-24 14:36 | NUR ---
Paracentesis Patient arrived to [facility] via bed for a paracentesis. Patient agreeable to the procedure but does not appear to grasp the full concept. Consent is signed by daughter Maria Isabel.
--- NOTE | 2017-04-24 15:01 | NUR ---
Tachycardia Upon arrival patient had sustained HR 180's though has decreased to 110's without tx. Dr. Calderon notified. No new orders received.
[2017-04-24] MEDS ORDERED: Albumin 25% 50 ML IV ONE (16:40)
--- NOTE | 2017-04-24 16:54 | DRSVH ---
PROCEDURE: X-RAY CHEST ONE VIEW, PORTABLE ([id number]) INDICATIONS: SOB TECHNIQUE: One view of the chest was acquired. COMPARISON: [facility], CR, XR CATHETER PATENCY STUDY, 03/23/2016, 13:27. [facility], CT, CT CHEST ABD PELVIS W CON, 03/01/2016, 11:00. [facility], CR, XR CHEST 1VW (PORTABLE), 07/16/2015, 13:35. FINDINGS: Surgical changes and devices: Right IJ chest port unchanged in position with tip projected over the r ight brachiocephalic vein as was seen on prior chest radiograph dated 03/23/2016. Lungs and pleura: Bilateral pleural effusions are present, right greater than left with bibasilar air space opacities. No pneumothorax. Mediastinum: Mediastinal contours appear normal. Heart size is normal. Bones and chest wall: No suspicious bony lesions. Overlying soft tissues appear unremarkable. IMPRESSION: 1. Right IJ chest port tube tip again noted to be projected over the right brachiocephalic appearing similar position to prior examination. 2. Bibasilar pleural effusions, right greater than left with associated bibasilar opacities consisten t with compressive atelectasis versus pneumonia. Continued radiographic surveillance to resolution is recommended. Dictated by: Bharat HIGHTOWER Interpreted: Sonja Queen MD on 04/24/2017 at 7:56 Approved by: Sonja Queen M.D. on 04/24/2017 at 16:51
--- NOTE | 2017-04-24 17:06 | DRSVH ---
PROCEDURE: US GUIDED PARACENTESIS, PRIMARY ([id number]) INDICATIONS: ascites TECHNIQUE: The indications, alternatives, benefits, risks, and complications of the procedure were explained to the patient. Written informed consent was obtained and placed in the chart. The abdomen and pelvis were examined sonographically, and an appropriate site was chosen for paracentesis. The skin was pre pared and draped in the usual sterile fashion, and 1% lidocaine was infiltrated from the skin down th rough the peritoneal surface. A 19-gauge catheter-covered needle was then introduced into the perito luci space, the catheter was advanced and the needle was withdrawn, and thereafter peritoneal fluid w as withdrawn. The catheter was then removed and a dressing was applied. The fluid was discarded if the clinician did not order diagnostic testing of the fluid. The attending physician was present, an d personally performed the procedure. COMPARISON: [facility], US, US GUIDED PARACENTESIS, 03/24/2017, 10:17. FINDINGS: Access site: Midline pelvis Needle: One-Step centesis catheter with introducer needle. Fluid volume and description: 7 L of clear peritoneal fluid. Fluid sent for diagnostic testing: Therapeutic drainage. Medications: 1% lidocaine for local anaesthesia. Complications: None. IMPRESSION: Successful ultrasound-guided paracentesis. Dictated by: Bharat HIGHTOWER Interpreted: Sonja Queen MD on 04/24/2017 at 16:40 Approved by: Sonja Queen M.D. on 04/24/2017 at 17:04
--- NOTE | 2017-04-24 17:24 | NUR ---
Paracentesis Procedure completed, total of 7050cc removed. Patient tolerated procedure well. At this point denies pain. Albumin infusing as ordered. Report given to Susan Araiza RN.
--- NOTE | 2017-04-24 18:28 | NUR ---
Case Management: Attempted to provide IMM but there was no family at bedside. RN states that patient's daughter will be in tomorrow morning. Sara Franco RN Addendum: 04/25/17 at 1754 by SARA FRANCO Case Management: Again went by room to provided IMM, no family at bedside, patient sleeping soundly. Will continue to try to provide the IMM information to patient's daughter. Sara Franco RN
--- NOTE | 2017-04-24 18:59 | NUR ---
Pain/paracentesis Patient with abdominal discomfort , abd lg distended prior to paracentesis had 7050 mls removed. Patient was given albumin by TAVON nurse as ordered. Patient unable to void and to weak to get up to bsc so [address] way Coyle 16 Fr placed without any problems. Pt returns from procedure very comfortable pain med given post treatment. Patient fairly drowsy. 02-3l nasal canula on. Daughter Maria Isabel called and informed.
--- NOTE | 2017-04-25 04:38 | NUR ---
Comfort Care/ New IV start During initial assessment, patient opened eyes briefly and and asked for ice water. Patient assisted with holding cup and took several sips. It was noted that patients IV on the right AC area had leaked and was bleeding. Charge nurse assessed and attempted to start new IV without success. RN attempted new IV also with no success. JAMAAL Hylton from CCU was called to floor to start IV. Successful attempt. Patient grimaced in pain and Morphine IVP administered. Morphine drip started for Comfort Care measures. Hourly rounding continues.
[2017-04-25 04:45] VITALS: BP 92/54; PULSE 97; RESP 20; O2SAT 98
[2017-04-25 09:05] VITALS: PULSE 108; RESP 16
--- NOTE | 2017-04-25 09:11 | PCM.PALLBR ---
Palliative Care Recommendation 87-year-old female with advanced ovarian cancer, carcinomatosis, progressive dementia, coagulopathy, hypertension, etc. admitted with progressive decline at home. Per patient and her daughter, wishes to transition to comfort care. Palliative medicine consulted to assist with this process. Summary of palliative recommendations: -Symptom management (Pain/other)-continue morphine drip 1 mg per hour with additional boluses/titration as needed for comfort. IV/PO lorazepam, haloperidol , ondansetron, etc. as needed further symptom management. Daughter Maria Isabel's contact numbers: h [phone] c [phone] w [phone] Continue her Lyrica, sertraline, etc. as before for her comfort. Did advise the nurse that if the patient is unwilling/unable to take oral medications that they may be held. -DPOA/Advanced Directives/POLST- DNR/DNI/comfort care. Plan on completing a POLST prior to discharge (if the patient does not here). Will monitor patient's progress over the next 24-48 hours before determining whether end-of- life care will continue here versus transition to SNF with end-of-life care. 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 Anasarca with lower extremity skin breakdown, present on admission, active. Ruled out versus resolved hypoxia, present on admission, active. Chronic stable conditions Polyneuropathy Depression and anxiety Hyperlipidemia Dementia Problems: End of Life Preferences DNR/DNI/comfort Goals of Care Patient requests comfort care Disposition To be determined Resuscitation Status Resuscitation Status: DNR/DNI:Do Not Resuscitate/Intubate POLST Updates/Changes Previous POLST?: No . Advanced Care Planning Address: Comfort care Pain: None Symptom management: Drowsiness/sleepiness Total time [ ] minutes; >50% face to face with patient and/or family, providing counselling regarding plans and recommendations, and in care coordination with his/her medical teams. I also spent an additional [ ] minutes counseling for advanced care planning with the patient/the patients family/the surrogate decision maker. Palliative Brief Note Date of Service Apr 25, 2017 . Returned to reevaluate patient. Prior to visiting, reviewed her updated records in the EMR and spoke with her nurse Reportedly rested comfortably through the night. Continues on morphine drip. When I arrived, she is sleeping peacefully. No evidence discomfort. I gently tried to awaken her but she remained asleep so I decided not to disturb her further. Physical exam stable/unchanged- advanced cachexia. Lungs with diminished breath sounds, heart sounds regular. Abdominal distention much improved after paracentesis yesterday David Eli MD Apr 25, 2017 09:11
[2017-04-25 12:53] VITALS: PULSE 100; RESP 14
[2017-04-25 13:46] VITALS: BP 68/48; PULSE 90; RESP 19; O2SAT 99
--- NOTE | 2017-04-25 13:47 | NUR ---
spiritual care: palliative request Visited with pt today who was groggy, but conversational. Pt stated that she "had pain all over." Talked briefly about leena and needs. Offered a blessing and a prayer. Spiritual care will continue to follow as needed.
--- NOTE | 2017-04-25 14:15 | PCM.PNMED ---
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 Patient was noticed to by hypoxic at the facility. She was sent to the hospital. ED physician had an extensive conversation with the patient's daughter. During this conversation it was clarified that the goal of care was comfort. Now nilda is in bed, awake, demented. Palliative medicine team evaluated the patient. They advised to monitor patient's progress over the next 24-48 hours before determining whether end-of-life care will continue here versus transition to SNF with end-of-life care. Exam Vital Signs Vital Sign - Last Date Time Temp Pulse Resp B/P Pulse Ox O2 Delivery O2 Flow Rate FiO2 04/25/17 13:46 35.4 90 19 68/48 99 Room Air 04/25/17 04:45 3.00 Intake and Output 04/24/17 04/24/17 04/25/17 Cumulative From/Thru 15:00 23:00 07:00 04/23/17 22:58 - 04/25/17 06:12 Intake Total 0 ml 200 ml 700 ml Output Total 7500 ml 350 ml 7850 ml Balance -7500 ml -150 ml -7150 ml Intake Oral 0 ml 200 ml 200 ml IV Total 500 ml Output Urine Total 450 ml 350 ml 800 ml Other 7050 ml 7050 ml # Voids 1 # Bowel Movements 1 1 Exam GENERAL: sleepy, weak, not in distress HEAD: atraumatic, normocephalic, no bruises. EYES: anicteric, able to fully open and close eyelids SKIN: Skin color normal, turgor normal. No visible rashes EAR, NOSE, MOUTH, THROAT: Lips, oral mucosa, tongue are moist, pink, no lesions. NECK: no jugulovenous distention; supple ROM normal. RESPIRATORY: Lungs clear to auscultation. Good diaphragmatic excursion. CARDIAC: normal S1 and S2; no rubs, or gallops; regular rhythm ABDOMEN: Abdomen soft, non-tender. BS normal. MUSCULOSKELETAL: ROM full, muscles are not tender EXTREMITIES: +2 pitting edema in LE, no new deformities NEURO: Alert, oriented X 1, Cranial nerves II-XII intact, Grossly normal motor function. PULSES: 2+ radial, 2+ carotid REVIEW OF SYSTEMS: GENERAL: + malaise, no fevers., SEE HPI HEENT: Negative for frequent or significant headaches All other reviewed and negative other than HPI. IVs and Medications Medications Reviewed: Medications were reviewed in detail Lab and Diagnostics Result Diagram: 04/24/1730404/24/17304 Cardiac Echo Impressions Echocardiogram Report Name: JASON FARLEY Study Date: 07/19/2015 Interpretation Summary The left ventricle is normal in size. The ejection fraction is estimated to be 55-60%. Septal motion is consistent with conduction abnormality. The right ventricle is normal in size, thickness and function. Pulmonary artery pressures cannot be estimated because of the lack of a measurable TR jet velocity. The left atrial size is normal. The right atrium is normal in size. There is no significant valvular heart disease. The ascending aorta is mildly enlarged. There is an echogenic strand in the IVC. It doesn't appear to be a thrombus but cannot be excluded. Consider abdominal ultrasound to rule out thrombus in IVC. The IVC is of normal diameter and collapses greater than 50% with a sniff. This suggests a low right atrial pressure of 3 mm Hg. 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 This [facility] decreased oxygen saturations in the 70s although the patient never expressed symptoms of shortness of breath. 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 German. Patient currently not being treated but had follow- up appointment scheduled for 04/24/2017 due to increasing ascites and edema. - Discussion with patient's daughter by ED physician clarified the goals of care are comfort and that she is DNR/DNI. - palliative care consulted Plan - c/w current meds Hypoxia - resolved, probably it was an error Anasarca with lower extremity skin breakdown - stable - Continue home medication - Wound care consult. Polyneuropathy, Depression and anxiety - stable - Continue current medication Hyperlipidemia - stable - Continue home medication DVT PROPHYLAXIS: Lovenox Code status: DNR/DNI Plan of care discussed with treatment team; Labs, radiology tests, Tele and ECG reviewed. Resuscitation Status: DNR/DNI:Do Not Resuscitate/Intubate Augustus Calderon MD Apr 25, 2017 14:15
--- NOTE | 2017-04-25 15:46 | NUR ---
Social Work: Initial Assessment/Readiness for D/C D: EMR reviewed. Please see Initial Assessment linked to this note for more information. Pt is a 87 year old female admitted [place] for vomiting, abdominal pain, ovarian cancer per H&P. Pt's insurance is Medicare and [employer]. PCP is Angela Gregorio MD. Pt discussed in multidisciplinary rounds, anticipated to within the next 24 hours at [facility]. Pt on comfort measures only, currently on morphine drip. Pt has dementia at baseline and is minimally responsive, salesperson burial needs is daughter Maria Isabel. Pt lives at [facility] and has been wheelchair bound prior to admission. Pt requires assistance with ADLs and is not capable of self-care. Pt has completed POLST on file. At this time pt is not expected to discharge, but if plan evolves and pt becomes medically stable for d/c she would return to [facility]. T/C to [facility] regarding pt and potential return if clinical presentation dramatically changes. [facility] returning if she is able to be removed from the morphine drip to liquid (as [facility] is not able to handle IV pain meds) or brought back with hospice services to manage her drip. This appears to be very unlikely, however, given notes from Palliative Care and discussion in rounds this morning. A: Pt who is comfort care at the end of life. P: Pt anticipated to at [facility]. Should she become medically stable to transport she would likely return to [facility] with comfort measures only (if able to wean off IV medications) or hospice, depending. SW will continue to follow. MIS Lopez Addendum: 04/25/17 at 1702 by XIAO GARZA SS Amended: Links added.
--- NOTE | 2017-04-25 18:22 | NUR ---
COMFORT/CARE Morphine gtt. ongoing at 1 mg/hr. Morphine IVP X 1 was administered for BTP. HR-90's; RR-10's. Tolerating clear liquids. Refused meals. No nausea/emesis noted. Turned and repositioned as needed. IFC intact and draining to stephanie colored UO.
[2017-04-25 20:28] VITALS: BP 98/66; PULSE 103; RESP 16; O2SAT 90
--- NOTE | 2017-04-26 01:03 | NUR ---
Activity On initial assessment, patient stated extreme pain in bilateral heels. Morphine 1mg IVP administered. Patient has edema on bilateral legs, especially on the right knee. Patients abdomen has no appearance of swelling. Dressing CDI. Patient took sips of cold water and juice and was offered a warm blanket for comfort. Morphine drip running at 1mg/hr. Hourly rounding continues.
--- NOTE | 2017-04-26 11:40 | PCM.PALLBR ---
Palliative Care Recommendation Apr 26, 2017 87-year-old female with advanced ovarian cancer, carcinomatosis, progressive dementia, coagulopathy, hypertension, etc. admitted with progressive decline at home. Per patient and her daughter, wishes to transition to comfort care. Palliative medicine consulted to assist with this process. Summary of palliative recommendations: -Symptom management (Pain/other)-continue morphine drip 1 mg per hour with additional boluses/titration as needed for comfort. IV/PO lorazepam, haloperidol , ondansetron, etc. as needed further symptom management. --assess pain and titrate infusion of morphine as needed. Daughter Maria Isabel's contact numbers: h [phone] c [phone] w [phone] Continue her Lyrica, sertraline, etc. as before for her comfort. Did advise the nurse that if the patient is unwilling/unable to take oral medications that they may be held. -DPOA/Advanced Directives/POLST- DNR/DNI/comfort care. Plan on completing a POLST prior to discharge (if the patient does not here). Will monitor patient's progress over the next 24-48 hours before determining whether end-of- life care will continue here versus transition to SNF with end-of-life care. 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 Anasarca with lower extremity skin breakdown, present on admission, active. Ruled out versus resolved hypoxia, present on admission, active. Chronic stable conditions Polyneuropathy Depression and anxiety Hyperlipidemia Dementia Problems: End of Life Preferences DNR/DNI/comfort Goals of Care Patient requests comfort care Disposition Expect patient to in hospital. IF she remains stable in the next 24-48 hours then placement is to be determined Resuscitation Status Resuscitation Status: DNR/DNI:Do Not Resuscitate/Intubate POLST Updates/Changes Previous POLST?: No Antibiotics: No Antibiotics Artificially Admin Nutrition: No Artifical Nutrition by Tube . Advanced Care Planning Address: Comfort care Pain: Moderate Symptom management: Dyspnea, Pain Total time 30 minutes; >50% face to face with patient and/or family, providing counselling regarding plans and recommendations, and in care coordination with his/her medical teams. copies to: WILLIE ASHTON MD Palliative Brief Note Date of Service Apr 26, 2017 . Pt is easily roused, awake and able to respond to questions. Showing no signs of distress, denies pain. Extremities cooling, very pale, extremely cachectic and weak. morphine adjusted to comfort. d/w RN; IVF running at 20 ml/hr, now being DCd.CM will start to explore options for placement if pt remains stable with IVF stopped. Kuldip Novoa [facility] Apr 26, 2017 11:40
[2017-04-26 13:09] VITALS: BP 76/46; PULSE 107; RESP 18; O2SAT 90
--- NOTE | 2017-04-26 15:33 | NUR ---
Case Management: Spoke with patient's daughter Maria Isabel by phone [phone] - she works in [place] and plans to visit on Sunday 04/29. ASHER information presented with explanation at 1530, 04/26 - Maria Isabel had no questions. Addendum: 04/26/17 at 1537 by JOÃO TIWARI CM Daniel tiwari RN
--- NOTE | 2017-04-26 17:39 | PCM.PNMED ---
Subjective Date of Service Apr 26, 2017 Subjective Patient is in the bed, looks comfortable. Exam Vital Signs Vital Sign - Last Date Time Temp Pulse Resp B/P Pulse Ox O2 Delivery O2 Flow Rate FiO2 04/26/17 13:09 36.6 107 18 76/46 90 Room Air 04/25/17 04:45 3.00 Intake and Output 04/25/17 04/25/17 04/26/17 Cumulative From/Thru 15:00 23:00 07:00 04/23/17 22:58 - 04/26/17 06:42 Intake Total 600 ml 570 ml 1870 ml Output Total 400 ml 575 ml 8825 ml Balance 200 ml -5 ml -6955 ml Intake Oral 600 ml 150 ml 950 ml IV Total 420 ml 920 ml Output Urine Total 400 ml 575 ml 1775 ml Other 7050 ml # Voids 1 # Bowel Movements 0 1 Exam GENERAL: sleepy, weak, not in distress HEAD: atraumatic, normocephalic, no bruises. EYES: anicteric, able to fully open and close eyelids SKIN: Skin color normal, turgor normal. No visible rashes EAR, NOSE, MOUTH, THROAT: Lips, oral mucosa, tongue are moist, pink, no lesions. NECK: no jugulovenous distention; supple ROM normal. RESPIRATORY: Lungs clear to auscultation. Good diaphragmatic excursion. CARDIAC: normal S1 and S2; no rubs, or gallops; regular rhythm ABDOMEN: Abdomen soft, non-tender. BS normal. MUSCULOSKELETAL: ROM full, muscles are not tender EXTREMITIES: +2 pitting edema in LE, no new deformities NEURO: Alert, oriented X 1, Cranial nerves II-XII intact, Grossly normal motor function. PULSES: 2+ radial, 2+ carotid REVIEW OF SYSTEMS: GENERAL: + malaise, no fevers., SEE HPI HEENT: Negative for frequent or significant headaches All other reviewed and negative other than HPI. IVs and Medications Medications Reviewed: Medications were reviewed in detail Lab and Diagnostics Result Diagram: 04/24/1730404/24/17304 Cardiac Echo Impressions Echocardiogram Report Name: JASON FARLEY Study Date: 07/19/2015 Interpretation Summary The left ventricle is normal in size. The ejection fraction is estimated to be 55-60%. Septal motion is consistent with conduction abnormality. The right ventricle is normal in size, thickness and function. Pulmonary artery pressures cannot be estimated because of the lack of a measurable TR jet velocity. The left atrial size is normal. The right atrium is normal in size. There is no significant valvular heart disease. The ascending aorta is mildly enlarged. There is an echogenic strand in the IVC. It doesn't appear to be a thrombus but cannot be excluded. Consider abdominal ultrasound to rule out thrombus in IVC. The IVC is of normal diameter and collapses greater than 50% with a sniff. This suggests a low right atrial pressure of 3 mm Hg. 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 [place]. This evening [facility] reports decreased oxygen saturations in the 70s although the patient never expressed symptoms of shortness of breath. 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 German. Patient currently not being treated but had follow- up appointment scheduled for 04/24/2017 due to increasing ascites and edema. - Discussion with patient's daughter by ED physician clarified the goals of care are comfort and that she is DNR/DNI. - palliative care consulted Plan - c/w current meds - Placement Hypoxia - resolved, probably it was an error Anasarca with lower extremity skin breakdown - stable - Continue home medication - Wound care consult. Polyneuropathy, Depression and anxiety - stable - Continue current medication Hyperlipidemia - stable - Continue home medication DVT PROPHYLAXIS: Comfort care Code status: DNR/DNI Plan of care discussed with treatment team; Labs, radiology tests, Tele and ECG reviewed. Resuscitation Status: DNR/DNI:Do Not Resuscitate/Intubate Augustus Calderon MD Apr 26, 2017 17:38
[2017-04-26 18:29] VITALS: PULSE 94; RESP 12
--- NOTE | 2017-04-26 18:42 | NUR ---
Comfort Limited interventions for this pt on comfort care. Rounding on pt frequently to assess pt's comfort. Pt denies pain. IV morphine drip running at 1 mL/hr with NS at 10 mL/ hr to push morphine through the IV line. Pt oriented to self and responds to questions; able to follow commands. Does not know what year it is. Pt usually denies pain and appears comfortable unless she needs to be moved. Pt occasionally c/o heel pain. Monitoring respirations: last check RR was 12, regular and unlabored.
[2017-04-27 04:02] VITALS: BP 80/51; PULSE 100; RESP 14; O2SAT 90
--- NOTE | 2017-04-27 05:31 | NUR ---
Comfort, Pt continues on comfort care. Repositioned frequently and as tolerated. Refused assessment done on her this shift. IVF & MS running per orders. F/C is patent and draining yellow urine with no concern. Will continues to monitor.
--- NOTE | 2017-04-27 13:19 | NUR ---
Palliative Care note D/A: Kuldip CASTANEDA has examined pt today and finds that she is more alert and is sitting up in bed and eating mac and cheese. She finds that pt will be appropriate to return to SNF. Phone call to walker Danielle to discuss. She is aware of plan for hospice and is coordinating with the hospice agency. Inform her that Kuldip CASTANEDA is working on a plan to transition pt to oral medications (possibly MS Contin ) as well as Haldol for hallucinations. P: Palliative care to follow. Selin HASSAN, CCM
--- NOTE | 2017-04-27 13:53 | PCM.PNMED ---
Subjective Date of Service Apr 27, 2017 Subjective Patient is in the bed, looks comfortable. Exam Vital Signs Vital Sign - Last Date Time Temp Pulse Resp B/P Pulse Ox O2 Delivery O2 Flow Rate FiO2 04/27/17 04:02 36.5 100 14 80/51 90 Room Air 04/25/17 04:45 3.00 Intake and Output 04/26/17 04/26/17 04/27/17 Cumulative From/Thru 15:00 23:00 07:00 04/23/17 22:58 - 04/27/17 06:26 Intake Total 520 ml 437 ml 2827 ml Output Total 250 ml 350 ml 9425 ml Balance 270 ml 87 ml -6598 ml Intake Oral 520 ml 100 ml 1570 ml IV Total 337 ml 1257 ml Output Urine Total 250 ml 350 ml 2375 ml Other 7050 ml # Voids 1 # Bowel Movements 0 0 1 Exam GENERAL: awake, weak, not in distress HEAD: atraumatic, normocephalic, no bruises. EYES: anicteric, able to fully open and close eyelids SKIN: Skin color normal, turgor normal. No visible rashes EAR, NOSE, MOUTH, THROAT: Lips, oral mucosa, tongue are moist, pink, no lesions. NECK: no jugulovenous distention; supple ROM normal. RESPIRATORY: Lungs clear to auscultation. Good diaphragmatic excursion. CARDIAC: normal S1 and S2; no rubs, or gallops; regular rhythm ABDOMEN: Abdomen soft, non-tender. BS normal. MUSCULOSKELETAL: ROM full, muscles are not tender EXTREMITIES: +2 pitting edema in LE, no new deformities NEURO: Alert, oriented X 1, Cranial nerves II-XII intact, Grossly normal motor function. PULSES: 2+ radial, 2+ carotid REVIEW OF SYSTEMS: GENERAL: + malaise, no fevers., SEE HPI HEENT: Negative for frequent or significant headaches All other reviewed and negative other than HPI. IVs and Medications Medications Reviewed: Medications were reviewed in detail Lab and Diagnostics Result Diagram: 04/24/1730404/24/17304 Cardiac Echo Impressions Echocardiogram Report Name: JASON FARLEY Study Date: 07/19/2015 Interpretation Summary The left ventricle is normal in size. The ejection fraction is estimated to be 55-60%. Septal motion is consistent with conduction abnormality. The right ventricle is normal in size, thickness and function. Pulmonary artery pressures cannot be estimated because of the lack of a measurable TR jet velocity. The left atrial size is normal. The right atrium is normal in size. There is no significant valvular heart disease. The ascending aorta is mildly enlarged. There is an echogenic strand in the IVC. It doesn't appear to be a thrombus but cannot be excluded. Consider abdominal ultrasound to rule out thrombus in IVC. The IVC is of normal diameter and collapses greater than 50% with a sniff. This suggests a low right atrial pressure of 3 mm Hg. Reading Physician:PM Assessment & Plan Magdalena Farley is an 87-year-old female with past medical history significant for dementia, hypertension, hyperlipidemia, polyneuropathy, and primary peritoneal carcinoma ovarian cancer currently not on chemotherapy, complicated by malignant ascites, extensive lower extremity pitting edema and pressure ulcers who is wheelchair-bound and currently resides at [facility] [place]. This evening [facility] reports decreased oxygen saturations in the 70s although the patient never expressed symptoms of shortness of breath. 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 German. Patient currently not being treated but had follow- up appointment scheduled for 04/24/2017 due to increasing ascites and edema. - Discussion with patient's daughter by ED physician clarified the goals of care are comfort and that she is DNR/DNI. - palliative care consulted Plan - c/w current meds - Placement Hypoxia - resolved, probably it was an error Anasarca with lower extremity skin breakdown - stable - Continue home medication - Wound care consult. Polyneuropathy, Depression and anxiety - stable - Continue current medication Hyperlipidemia - stable - Continue home medication DVT PROPHYLAXIS: Comfort care Code status: DNR/DNI Plan of care discussed with treatment team; Labs, radiology tests, Tele and ECG reviewed. Resuscitation Status: DNR/DNI:Do Not Resuscitate/Intubate Augustus Calderon MD Apr 27, 2017 13:53
--- NOTE | 2017-04-27 14:25 | PCM.PALLBR ---
Palliative Care Recommendation Apr 26, 2017 87-year-old female with advanced ovarian cancer, carcinomatosis, progressive dementia, coagulopathy, hypertension, etc. admitted with progressive decline at home. Per patient and her daughter, wishes to transition to comfort care. Palliative medicine consulted to assist with this process. Today patient no longer appears to be dying imminently; she appears stable enough for transfer to a less acute setting for end of life care. Summary of palliative recommendations: -Symptom management (Pain/other)-pt being transitioned to oral pain medication in anticipation of discharge --start with MS Contin 15 mg morning and afternoon plus a dose of 30 mg at HS. --breakthrough morphine 15 mg po--have also put in order for Morphine oral concentrate 5-10 mg q 4 hrs prn in case patient is refusing pills. OF note, patient is refusing pills and may refuse these as well. IF that is persistent, she could transition to liquid oral medications including methadone per hospice. IF she is having pain due to refusal of oral pills, her liquid morphine dosing should be adjusted to provide equivalent pain control as follows: --Morphine oral concentrate (20 mg/ml) 10 mg every 4 hours scheduled with 5- 10 mg breakthrough q 2 hrs prn pain. Her daughter has been consulted regarding discharge and has chosen for hospice to be involved in transitioning her mother back to her LTC bed. Daughter Maria Isabel's contact numbers: h [phone] c [phone] w [phone] Continue her Lyrica, sertraline, etc. as before for her comfort. Did advise the nurse that if the patient is unwilling/unable to take oral medications that they may be held. --Pt has been refusing these. --Seroquel dose changed to HS -DPOA/Advanced Directives/POLST- DNR/DNI/comfort care. Plan on completing a POLST prior to discharge Given the patient's progress, end-of-life care will occur in SNF/LTC with hospice support for end-of-life care. 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 Anasarca with lower extremity skin breakdown, present on admission, active. Ruled out versus resolved hypoxia, present on admission, active. Chronic stable conditions Polyneuropathy Depression and anxiety Hyperlipidemia Dementia Problems: End of Life Preferences DNR/DNI/comfort Goals of Care Patient requests comfort care Disposition Expect patient to in hospital. IF she remains stable in the next 24-48 hours then placement is to be determined Resuscitation Status Resuscitation Status: DNR/DNI:Do Not Resuscitate/Intubate POLST Updates/Changes Previous POLST?: No Antibiotics: No Antibiotics Artificially Admin Nutrition: No Artifical Nutrition by Tube . Advanced Care Planning Address: POLST Pain: Moderate Symptom management: Pain Total time 60 minutes; >50% face to face with patient and/or family, providing counselling regarding plans and recommendations, and in care coordination with his/her medical teams. copies to: WILLIE ASHTON MD Palliative Brief Note Date of Service Apr 27, 2017 . The patient is sitting up with dtr at bedside, self feeding mac and cheese. She reports comfort at this time. The dtr expresses concern about things her mother is telling her, that she seems to be having hallucinations. We will trial haldol for this and use a conservation level of conversion in switching to oral morphine. CM is informed and has offered discharge options. The dtr has chosen for her mother to return to her LTC bed at [facility] and have hospice support services. See orders for medication transition. Kuldip Novoa Apr 27, 2017 14:25
[2017-04-27] MEDS: Morphine ER 15 mg (MS Contin) Tablet PO SCH (14:34)
--- NOTE | 2017-04-27 15:51 | NUR ---
Social Work- Readiness for Discharge/Multidisciplinary Rounds Data: EMR reviewed. Pt is on day 4 of hospitalization. Pt discussed in multidisciplinary rounds, pt is more appropriate for transition to [facility] today. She was sitting up in bed eating earlier today. Palliative Care is transitioning pt to oral medications in preparation for discharge. Palliative Care does not feel that pt will require hospice services to be open prior to pt discharging. SW met with pt and daughter at bedside to discuss hospice. Explained role of hospice and provided hospice choice list. Pt's daughter Maria Isabel [phone] chose [facility]. 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 Received T/C from Felicita at [facility] who is following up regarding pt's informational visit. T/C to Monica at [facility] to inform her that pt will be discharging tomorrow and has elected to use [facility] services. Monica is agreeable to this, agreeable to pt returning tomorrow. Pt may require BLS transportation tomorrow depending on clinical status. No BLS order received at this time. T/C to Maria Isabel, pt's daughter, regarding plan including transitioning pt to orals, [facility] info visit, and pt's return to [facility]. Maria Isabel is agreeable to plan and will not be able to be with pt during transport tomorrow. Requested phone call alerting her to discharge time when known. SW agreeable. Pt will likely d/c tomorrow after transition to PO medications back to [facility], potentially via BLS. Paperwork in pt's chart for RN to complete. SW will continue to follow. Assessment: Pt for whom hospice services are indicated. Plan: Pt anticipated to d/c tomorrow back to [facility], with [facility] to follow up with pt and daughter at [facility]. Paperwork in pt's chart. Pt's daughter updated and agreeable to plan. Fiona Saha MSW
[2017-04-27] MEDS ORDERED: Morphine 20 mg/mL Oral Syringe SL/PO PRN (16:10)
[2017-04-27 16:51] VITALS: BP 92/54; PULSE 77; RESP 16; O2SAT 90
--- NOTE | 2017-04-27 18:46 | NUR ---
Comfort: IV Morphing gtt stopped, PO Morphine started. No c/o pain, answers some questions, Coyle to gravity, tolerating PO intake. Repositioned as tolerated. Plan to d/c to SNF with Hospice, care ongoing.
[2017-04-27] MEDS ORDERED: Morphine ER 30 mg (MS Contin) Tablet PO SCH (21:00)
--- NOTE | 2017-04-28 03:31 | NUR ---
Comfort/Pain Pt alert and responsive, confused and able to make needs known sometimes. No changes in LOC noted. pt reports pain during care and repositioning. 2mg IV morphine admin good relief noted. Coyle cath is patent and draining yellow urine. Pt is sleeping soundly in bed, call light w/in reach. Care continues.
[2017-04-28 04:17] VITALS: BP 98/61; PULSE 98; RESP 16; O2SAT 90
[2017-04-28] MEDS: Morphine ER 15 mg (MS Contin) Tablet PO SCH (08:00)
[2017-04-28] MEDS ORDERED: LORAZEPAM 2 MG/ML PO PRN (10:45)
--- NOTE | 2017-04-28 10:54 | NUR ---
Inpatient Wound Nurse BLE wraps removed and BLE assessed. No open areas found, no drainage, no specifically erythemic areas. Edema has improved. Patient is now Comfort Care and without open wounds, no needs for BLE wraps are identified. However, if wraps provide comfort or ease symptoms, CWON RN can certainly reapply prior to discharge later today.
--- NOTE | 2017-04-28 11:15 | PCM.DIMED ---
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
[2017-04-28] MEDS ORDERED: SERT50TA9 PO (11:33)
[2017-04-28] MEDS ORDERED: ONDA-54 PO (11:33)
[2017-04-28] MEDS ORDERED: PREG75CA PO (11:33)
[2017-04-28] MEDS ORDERED: MORP-33 PO (11:33)
[2017-04-28] MEDS ORDERED: MORP15TA PO (11:33)
[2017-04-28] MEDS ORDERED: QUET25TA73 PO (11:33)
[2017-04-28] MEDS ORDERED: LRZ2B30 PO (11:33)
[2017-04-28] MEDS ORDERED: MORP100S5 SL/PO (11:33)
--- NOTE | 2017-04-28 11:48 | NUR ---
Social Work: Discharge/Multidisciplinary Rounds D: EMR reviewed. Pt is on day 5 of hospitalization. Pt discussed in multidisciplinary rounds and is medically stable for discharge back to [facility] via BLS today. SW placed [facility] after receiving MD order and family choice. [facility] date with pt and follow up with pt's NOK regarding informational visit. SW received MD order for BLS transport. SW notified [employer] of discharge and BLS transport. SW signed PCS form and gave to [employer]. [employer] confirmed [facility] can transfer pt at 1400 today. SW placed T/C to pt's daughter and updated her on transfer time, Maria Isabel agreeable. SW updated RN/UA/hearing consultant on transport time all agreeable. [employer] faxed discharge ppw and completed transfer packet. No other SW needs identified, no other MD orders received. A: Pt to return to [facility] via BLS and open with [facility] at a later time. SW placed referral to [facility] after receiving MD order and family choice. [facility] open at a later date with pt and follow up with pt's NOK regarding informational visit. P: Pt to return to [facility] via BLS at 1400 today and open with [facility] at a later time. SW placed referral to [facility] after receiving MD order and family choice. [facility] open at a later date with pt and follow up with pt's NOK regarding informational visit. SW updated pt's NOK Maria Isabel on discharge time/plan. Pt and daughter agreeable. [employer] completed transfer packet, faxed discharge ppw, and notified [facility] of pt's transport time. No other SW needs identified at this time, no other MD orders received. Debby Davison MSW
--- NOTE | 2017-04-28 12:04 | NUR ---
PENITENTIARY TRANSFER : Faxed orders to [facility] and placed copy in the chart. S transport scheduled for 1400 via [facility]. Updated CRIB CLERK and RN
--- NOTE | 2017-04-28 12:42 | NUR ---
Palliative care note D/A: Case discussed in dc rounds. Dr. Calderon would like POLST completed prior to dc. This is communicated with Dr. Eli. POLST completed and reads as DNAR with comfort focused treatment. Decision is reached not to use antibx except when needed for symptom management and no medically assisted nutrition via tube. Msg left for Debby ABEBE, dcp. Pt to dc today to SNF with [facility] to follow. POLST is scanned and emailed to [facility], Ankita Scott. P: No further need for PC services. Selin COOPERSW, CCM
--- NOTE | 2017-04-28 12:59 | PCM.PALLBR ---
Palliative Care Recommendation 87-year-old female with advanced ovarian cancer, carcinomatosis, progressive dementia, coagulopathy, hypertension, etc. admitted with progressive decline at home. Per patient and her daughter, wishes to transition to comfort care. Palliative medicine consulted to assist with this process. Today patient no longer appears to be dying imminently; she appears stable enough for transfer to a less acute setting for end of life care. Summary of palliative recommendations: -Symptom management (Pain/other)-pt being transitioned to oral pain medication in anticipation of discharge --start with MS Contin 15 mg morning and afternoon plus a dose of 30 mg at HS. --breakthrough morphine 15 mg po--have also put in order for Morphine oral concentrate 5-10 mg q 4 hrs prn in case patient is refusing pills. OF note, patient is refusing pills and may refuse these as well. IF that is persistent, she could transition to liquid oral medications including methadone per hospice. IF she is having pain due to refusal of oral pills, her liquid morphine dosing should be adjusted to provide equivalent pain control as follows: --Morphine oral concentrate (20 mg/ml) 10 mg every 4 hours scheduled with 5- 10 mg breakthrough q 2 hrs prn pain. Her daughter has been consulted regarding discharge and has chosen for hospice to be involved in transitioning her mother back to her LTC bed. Daughter Maria Isabel's contact numbers: [phone] c [phone] w [phone] Continue her Lyrica, sertraline, etc. as before for her comfort. Did advise the nurse that if the patient is unwilling/unable to take oral medications that they may be held. --Pt has been refusing these. --Seroquel dose changed to HS -DPOA/Advanced Directives/POLST- DNR/DNI/comfort care. New POLST completed today documenting DNR/DNI/comfort/no antibiotics/no artificial nutrition. Copies in her paper chart along with the original and a copy in the palliative office as well. Given the patient's progress, end-of-life care will occur in SNF/LTC with hospice support for end-of-life care. 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 Anasarca with lower extremity skin breakdown, present on admission, active. Ruled out versus resolved hypoxia, present on admission, active. Chronic stable conditions Polyneuropathy Depression and anxiety Hyperlipidemia Dementia Problems: End of Life Preferences DNR/DNI/comfort Goals of Care Patient requests comfort care Disposition Transition to care facility with hospice to follow Resuscitation Status Resuscitation Status: DNR/DNI:Do Not Resuscitate/Intubate POLST Updates/Changes Previous POLST?: No Antibiotics: No Antibiotics Artificially Admin Nutrition: No Artifical Nutrition by Tube POLST Review Outcome: New Form Completed . Advanced Care Planning Address: POLST, Comfort care Pain: None Symptom management: Drowsiness/sleepiness, Delirium Total time 50 minutes; >50% face to face with patient and family, providing counselling regarding plans and recommendations, and in care coordination with her medical teams. All of the above time spent counseling for advanced care planning with the patient and her daughter/POA, finalizing arrangements for discharge including completion of a new POLST, coordinating with her hospitalist team and discharge planners, etc. copies to: WILLIE ASHTON MD Palliative Brief Note Date of Service Apr 28, 2017 . Returned to reevaluate patient. Prior to visiting, reviewed her updated records in the EMR in detail, spoke with her nurse and also with her daughter/POA Maria Isabel. Also received signout from yesterday's palliative provider. When I arrived, patient was sleeping in bed. She would arouse but remained somewhat confused. Denied any significant pain or dyspnea. Was unable to sign documents. Physical exam remains stable. Because she is likely discharging I contacted her daughter/POA by phone. Reviewed details of the POLST and then signed on her behalf, witnessed by myself and the patient's nurse today. Copies of the new document placed in her chart with additional copy and the palliative office. David Eli MD Apr 28, 2017 12:59
--- NOTE | 2017-04-28 14:15 | NUR ---
Medication Refusal, Discharge Patient refused all medications this shift, stating "I don't want any", despite education. Orders for discharge to [facility] were received. Patient and family agreeable aware of plan for discharge and are agreeable to go. Patient discharge/transfer information handled by social work. Patient's asymptomatic IV removed intact. The patient's belongings were gathered and left with patient upon transfer. At the time of discharge patient oriented to self and place, pereira catheter intact and draining pale urine, heel boots in place, paracentesis dressing CDI. Report called to receiving RN.
--- NOTE | 2017-04-28 15:24 | PCM.DC.MED ---
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 The ejection fraction is estimated to be 55-60%. Septal motion is consistent with conduction abnormality. The right ventricle is normal in size, thickness and function. Pulmonary artery pressures cannot be estimated because of the lack of a measurable TR jet velocity. The left atrial size is normal. The right atrium is normal in size. There is no significant valvular heart disease. The ascending aorta is mildly enlarged. There is an echogenic strand in the IVC. It doesn't appear to be a thrombus but cannot be excluded. Consider abdominal ultrasound to rule out thrombus in IVC. The IVC is of normal diameter and collapses greater than 50% with a sniff. This suggests a low right atrial pressure of 3 mm Hg. 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 Her saturation was low at the facility (in the 70s) although the patient never expressed symptoms of shortness of breath. Patient was admitted for further evaluation. Patient underwent parenthesis. Palliative care was consulted. After discussion with family patient was started on Comfort Measures. Patient was seen and examined on the day of discharge. Patient was discharge to SNF on comfort measures. Please also see H&P and Palliative Medicine notes. Patient Condition @ Discharge: fair Discharge Disposition: SNF Discharge Confort measures TIME SPENT IN DISCHARGE ACTIVITY: ctivity greater then 30 minutes spent in discharge activity. 1. Discussed with palliative care physician and treatment team plan of discharge. Family agreed with discharge plan and further plan of care, all questions were answered/addressed, no further questions at the time of discharge. Exam Vital Signs (Last) Date Time Temp Pulse Resp B/P Pulse Ox O2 Delivery O2 Flow Rate FiO2 04/28/17 04:17 36.8 98 16 98/61 90 Room Air 04/25/17 04:45 3.00 Test 04/23/17 20:21 04/23/17 20:33 04/23/17 20:59 04/24/17 03:05 Hold Purple Top Tube Received (Received) Hold Blue Top Tube Received (Received) Hold Oak Top Tube Received (Received) Hold Ortega Top Tube Received (Received) Prothrombin Time 11.1sec (8.1-12.5) Prothromb Time International Ratio 1.04ratio Phosphorus Level 3.7mg/dL (2.5-4.9) Magnesium Level 2.0mg/dL (1.6-2.6) Urine Color Yellow (YELLOW) Urine Appearance Clear (CLEAR,HAZY) Urine pH 5.5 (5.0-8.0) Urine Specific [place] 1.020 (1.003-1.035) Urine Protein Negativemg/dL (NEG,TRACE) Urine Glucose (UA) Negativemg/dL (NEGATIVE) Urine Ketones Negativemg/dL (NEGATIVE) Urine Occult Blood Negative (NEGATIVE) Urine Nitrite Negative (NEGATIVE) Urine Bilirubin Negative (NEGATIVE) Urine Urobilinogen Normalmg/dL (NORMAL) Urine Leukocyte Esterase Negative (NEGATIVE) Urine RBC 0-2/hpf (0-2) Urine WBC 0-5/hpf (0-5) Urine Epithelial Cells Few/hpf (NONE-MOD) Urine Crystals None seen (NONE SEEN) Urine Bacteria None/hpf (NONE-FEW) Urine Hyaline Casts None/lpf (NONE) Urine Granular Casts None seen (NONE SEEN) Urine Waxy Casts None seen (NONE SEEN) Urine Red Blood Cell Casts None seen (NONE SEEN) Urine White Blood Cell Casts None seen (NONE SEEN) Urine Mucus None seen (None Seen) Urine Trichomonas None seen (NONE SEEN) Urine Yeast None (NONE SEEN) Urinalysis Comment None Urine Culture Reflexed Not indicated White Blood Count 11.0th/mm3 (3.8-10.1) Red Blood Count 3.16mil/mm3 (3.90-5.20) Hemoglobin 9.1g/dL (12.0-15.6) Hematocrit 28.5% (35.0-46.0) Mean Corpuscular Volume 90.2fL (81-100) Mean Corpuscular Hemoglobin 28.8pg (27.0-35.0) Mean Corpuscular Hemoglobin Concent 31.9% (32.0-37.0) Red Cell Distribution Width 14.5% (12.3-15.4) Platelet Count 287bil/L (150-400) Neutrophils (%) (Auto) 83.7% (40-74) Lymphocytes (%) (Auto) 3.6% (14-46) Monocytes (%) (Auto) 11.9% (4-12) Eosinophils (%) (Auto) 0.4% (0-5) Basophils (%) (Auto) 0% (0-3) Sodium Level 135mEq/L (134-144) Potassium Level 4.8mEq/L (3.5-5.2) Chloride Level 100mEq/L (97-108) Carbon Dioxide Level 23mmol/L (18-29) Blood Urea Nitrogen 58mg/dL (8-27) Creatinine 0.96mg/dL (0.57-1.00) Estimat Glomerular Filtration Rate 79mL/min (>59) Glucose Level 143mg/dL (60-99) Calcium Level 8.2mg/dL (8.5-10.1) Total Bilirubin 0.5mg/dL (0.0-1.2) Aspartate Amino Transf (AST/SGOT) 16U/L (0-50) Alanine Aminotransferase (ALT/SGPT) 8U/L (0-32) Alkaline Phosphatase 76U/L (25-165) Total Protein 5.2g/dL (6.4-8.4) Albumin 2.7g/dL (3.4-5.0) Discharge Medications Discharge Medications Latanoprost (Latanoprost) 2.5 Ml Drops 1 GTT OP LEFT EYE HS DAILY (Reported) Morphine Sulfate ER (Morphine Sulfate ER) 30 Mg Tablet 30 MG PO HS Prescribed by: ELLEN RODGERS MD Polyethylene Glycol 3350 (Miralax) 17 Gm Powd.pack 17 GM PO DAILY (Reported) Pregabalin (Lyrica) 75 Mg Capsule 75 MG PO BID Prescribed by: ELLEN RODGERS MD Quetiapine Fumarate (Quetiapine Fumarate) 25 Mg Tablet 12.5 MG PO DAILY Prescribed by: ELLEN RODGERS MD Sertraline HCl (Sertraline) 50 Mg Tablet 75 MG PO HS Prescribed by: ELLEN RODGERS MD As needed Acetaminophen (Acetaminophen) 325 Mg Tablet 650 MG PO Q4H PRN PRN For Pain ( Reported) Lorazepam Intensol (Lorazepam Intensol) 2 Mg/Ml Conc 1-2 MG PO Q2H PRN PRN agitation Prescribed by: ELLEN RODGERS MD Morphine Sulfate (Morphine Sulfate) 15 Mg Tablet 15 MG PO Q2H PRN PRN For Moderate Pain Prescribed by: ELLEN RODGERS MD Morphine Sulfate Oral Concentrate (Roxanol Oral Concentrate) 100 Mg/5 Ml (20 Mg/ Ml) Solution 5-10 MG SL/PO Q4H PRN PRN For Moderate Pain Prescribed by: ELLEN RODGERS MD Ondansetron (Ondansetron) 8 Mg Tablet 8 MG PO TID PRN PRN For Nausea Prescribed by: ELLEN RODGERS MD Polyvinyl Alcohol/Povidone/Pf (Refresh Classic Eye Drops) 1 Each Droperette 1 EACH BOTH_EYES q2 hours PRN PRN dry eyes (Reported) Miscellaneous Medications Polyvinyl Alcohol/Povidone/Pf (Refresh Classic Eye Drops) 1 Each Droperette 1 EACH OP (Reported) Followup Plan Discharge Diet: Other (Patient is on comfort care only) Discharge Activity: Other (Patinet is on comfort care only) Patient Instructions Continue with comfort care, follow up with PCP, Oncologist, palliative care/ Hospice for further management Augustus Calderon MD Apr 28, 2017 15:23 Alkaline Phosphatase 76U/L (25-165) Total Protein 5.2g/dL (6.4-8.4) Albumin 2.7g/dL (3.4-5.0) Discharge Medications Discharge Medications Latanoprost (Latanoprost) 2.5 Ml Drops 1 GTT OP LEFT EYE HS DAILY (Reported) Morphine Sulfate ER (Morphine Sulfate ER) 30 Mg Tablet 30 MG PO HS Prescribed by: ELLEN RODGERS MD Polyethylene Glycol 3350 (Miralax) 17 Gm Powd.pack 17 GM PO DAILY (Reported) Pregabalin (Lyrica) 75 Mg Capsule 75 MG PO BID Prescribed by: ELLEN RODGERS MD Quetiapine Fumarate (Quetiapine Fumarate) 25 Mg Tablet 12.5 MG PO DAILY Prescribed by: ELLEN RODGERS MD Sertraline HCl (Sertraline) 50 Mg Tablet 75 MG PO HS Prescribed by: ELLEN RODGERS MD As needed Acetaminophen (Acetaminophen) 325 Mg Tablet 650 MG PO Q4H PRN PRN For Pain ( Reported) Lorazepam Intensol (Lorazepam Intensol) 2 Mg/Ml Conc 1-2 MG PO Q2H PRN PRN agitation Prescribed by: ELLEN RODGERS MD Morphine Sulfate (Morphine Sulfate) 15 Mg Tablet 15 MG PO Q2H PRN PRN For Moderate Pain Prescribed by: ELLEN RODGERS MD Morphine Sulfate Oral Concentrate (Roxanol Oral Concentrate) 100 Mg/5 Ml (20 Mg/ Ml) Solution 5-10 MG SL/PO Q4H PRN PRN For Moderate Pain Prescribed by: ELLEN RODGERS MD Ondansetron (Ondansetron) 8 Mg Tablet 8 MG PO TID PRN PRN For Nausea Prescribed by: ELLEN RODGERS MD Polyvinyl Alcohol/Povidone/Pf (Refresh Classic Eye Drops) 1 Each Droperette 1 EACH BOTH_EYES q2 hours PRN PRN dry eyes (Reported) Miscellaneous Medications Polyvinyl Alcohol/Povidone/Pf (Refresh Classic Eye Drops) 1 Each Droperette 1 EACH OP (Reported) Followup Plan Discharge Diet: Other (Patient is on comfort care only) Discharge Activity: Other (Patinet is on comfort care only) Patient Instructions Continue with comfort care, follow up with PCP, Oncologist, palliative care/ Hospice for further management Augustus Calderon MD Apr 28, 2017 15:23
== END 2017-04-28 14:05 | disposition hospice, home (50) | DRG 375 ==
LOC: SED 19:36 → EDBD 19:36 → EDUNIT# 19:36 → OBSVTOIN 21:41 → OSC 21:41
PROVIDERS: ADMIT Hospitalist; ATTEND Internal Medicine
PROC: 0W9G3ZZ Drainage of Peritoneal Cavity, Percutaneous Approach (ICD-10-PCS; principal; 2017-04-24)
DX: C78.6 Secondary malignant neoplasm of retroperitoneum and peritoneum (principal); R18.0 Malignant ascites; C56.9 Malignant neoplasm of unspecified ovary; R64 Cachexia; Z51.5 Encounter for palliative care; F03.90 Unspecified dementia, unspecified severity, without behavioral disturbance, psychotic disturbance, mood disturbance, and anxiety; Z66 Do not resuscitate; E78.5 Hyperlipidemia, unspecified; L89.529 Pressure ulcer of left ankle, unspecified stage; L89.519 Pressure ulcer of right ankle, unspecified stage; G62.9 Polyneuropathy, unspecified; Z68.24 Body mass index [BMI] 24.0-24.9, adult; Z99.3 Dependence on wheelchair